=== PATIENT | male | born 1930 | race Caucasian/White ===

== ENCOUNTER 2017-05-15 20:09 | Emergency (ER) | payer MEDICARE, OTHER ==
--- NOTE | 2017-05-15 20:39 | Emergency Department Record ---
History of Present Illness - General Chief complaint: Bite Insect/other Stated complaint: not acting right/heart issues/copd/stung by bees Time Seen by Provider: 05/15/17 20:28 Source: Patient, Family Mode of Arrival: Wheelchair - History of Present Illness Initial comments: The patient was at his home outside wearing his oxygen as usual for his COPD when he got stung by some bees on his right cheek, left face, and right arm. In his attempts to get away his oxygen tubing caught on the fence, and he made it into the house without his oxygen. When his son and arrived about 30 minutes later they found him sitting in his chair, SOB, nauseated, and without very good color on his face. His symptoms improved when they placed his oxygen back on but he buitrago continued to not feel well and has nausea still. He denies any chest pain, fevers, chills, AP. His breathing is back to baseline he states. He is UTD on his tetanus. MD complaint: Insect bite/sting Onset/Timin -: Hour(s) Hx Tetanus Toxoid Vaccination: Yes Year of Tetanus Vaccination: 2012 Treatments Prior to Arrival: None - Related Data Home Medications Medication Instructions Recorded Confirmed Last Taken Amiodarone HCl 200 mg PO DAILY 04/13/14 05/15/17 05/14/17 Fluticasone/Salmeterol [Advair 1 puff INH BID 04/13/14 05/15/17 05/14/17 250-50 Diskus] Lisinopril 2.5 mg PO QHS 04/13/14 05/15/17 05/14/17 Metoprolol Succinate [Toprol Xl] 25 mg PO DAILY 04/13/14 05/15/17 05/14/17 Nitroglycerin 1 tab PO Q5MIN PRN 04/13/14 05/15/17 02/28/16 Rosuvastatin Calcium [Crestor] 10 mg PO QHS 04/13/14 05/15/17 05/14/17 Tiotropium [place] [Spiriva] 1 cap INH DAILY 04/13/14 05/15/17 05/14/17 Cholecalciferol (Vitamin D3) 4,000 unit PO DAILY 10/15/15 05/15/17 05/14/17 [Vitamin D3] Multivitamin [Multi-Vitamin Daily] 1 each PO DAILY 10/15/15 05/15/17 05/14/17 Aspirin [Aspir-Low] 81 mg PO DAILY 05/15/17 05/15/17 05/15/17 Allergies Allergy/AdvReac Type Severity Reaction Status Date / Time No Known Drug Allergies Allergy Verified 07/20/16 01:47 Travel Screening - Travel/Exposure Within Last 30 Days Have you traveled within the last 30 days?: No - Travel Symptoms Symptom Screening: None Review of Systems Reviewed: No additional complaints except as noted below Constitutional: Reports: As per HPI. Denies: Chills, Fever, Malaise, Night sweats, Weakness, Weight change Eyes: Reports: As per HPI. Denies: Eye discharge, Eye pain, Photophobia, Vision change ENT: Reports: As per HPI. Denies: Congestion, Dental pain, Ear pain, Epistaxis , Hearing loss, Throat pain Respiratory: Reports: As per HPI. Denies: Cough, Dyspnea, Hemoptysis, Stridor, Wheezes Cardiovascular: Reports: As per HPI. Denies: Arrhythmia, Chest pain, Dyspnea on exertion, Edema, Murmurs, Orthopnea, Palpitations, Paroxysmal nocturnal dyspnea, Rheumatic Fever, Syncope Endocrine: Reports: As per HPI. Denies: Fatigue, Heat or cold intolerance, Polydipsia, Polyuria Gastrointestinal: Reports: As per HPI. Denies: Abdominal pain, Constipation, Diarrhea, Hematemesis, Hematochezia, Melena, Nausea, Vomiting Genitourinary: Reports: As per HPI. Denies: Dysuria, Frequency, Hematuria, Incontinence, Retention, Testicular pain, Testicular mass, Urgency Musculoskeletal: Reports: As per HPI. Denies: Arthralgia, Back pain, Gout, Joint swelling, Myalgia, Neck pain Skin: Reports: As per HPI. Denies: Bruising, Change in color, Change in hair/ nails, Lesions, Pruritus, Rash Neurological: Reports: As per HPI. Denies: Abnormal gait, Confusion, Headache, Numbness, Paresthesias, Seizure, Tingling, Tremors, Vertigo, Weakness Psychiatric: Reports: As per HPI. Denies: Anxiety, Auditory hallucinations, Depression, Homicidal thoughts, Suicidal thoughts, Visual hallucinations Hematological/Lymphatic: Reports: As per HPI. Denies: Anemia, Blood Clots, Easy bleeding, Easy bruising, Swollen glands Past Medical History - SOCIAL HISTORY Smoking Status: Former smoker - RESPIRATORY Hx Respiratory Disorders: Yes Hx Bronchitis: Yes Hx COPD: Yes Hx Pneumonia: Yes Comment:: Home O2-3L - CARDIOVASCULAR Hx Cardio Disorders: Yes Hx Abnormal EKG: Yes Hx Cardiac Cath: Yes Hx Chest Pain: Yes Hx Edema: Yes Hx Hypertension: Yes Hx Irregular Heartbeat: Yes Comment:: AAA - NEURO Hx Neuro Disorders: No Hx Seizures: No - GI Hx GI Disorders: Yes Hx of Polyps: Yes Comment:: cholecystitis & cholelithiasis - Hx Genitourinary Disorders: Yes Hx Bladder Problem: Yes Hx Prostate Problems: Yes (removed) Hx Renal Disease: Yes - ENDOCRINE Hx Endocrine Disorders: No - MUSCULOSKELETAL Hx Musculoskeletal Disorders: Yes Hx Arthritis: Yes Hx Musculoskeletal Disease: Yes - PSYCH Hx Psych Problems: No - HEMATOLOGY/ONCOLOGY Hx Hematology/Oncology Disorders: Yes Hx Cancer: Yes (prostate) Hx Blood Transfusions: Yes Hx Blood Transfusion Reaction: No Family Medical History Any Significant Family History?: Yes Hx Diabetes: Father Hx Heart Disease: Father Physical Exam - General General Appearance: Alert, Oriented x3, Cooperative, Mild distress (fatigued pleasant elderlyl male ) - Head Head exam: Normal inspection Image of Face/Head: 1 - bee sting, no stinger found 2 - bee sting, no stinger found. local erythema only - Eye Eye exam: Normal appearance, PERRL, EOMI Pupils: Normal accommodation - ENT ENT exam: Normal exam, Mucous membranes moist, Normal external ear exam, Normal orophraynx, TM's normal bilaterally Ear exam: Normal external inspection. negative: External canal tenderness Nasal Exam: Normal inspection. negative: Discharge, Sinus tenderness Mouth exam: Normal external inspection, Tongue normal, Other (no edema or airway compromise). negative: Drooling, Muffled voice, Trismus Teeth exam: Normal inspection. negative: Dental caries Throat exam: Normal inspection. negative: Tonsillar erythema, Tonsillar exudate - Neck Neck exam: Normal inspection, Full ROM. negative: Tenderness - Respiratory Respiratory exam: Decreased breath sounds. negative: Accessory muscle use, Chest wall tenderness, Respiratory distress, Stridor, Wheezes - Cardiovascular Cardiovascular Exam: Regular rate, Normal rhythm, Normal heart sounds - GI/Abdominal GI/Abdominal exam: Soft, Normal bowel sounds. negative: Tenderness - Rectal Rectal exam: Deferred - exam: Deferred - Extremities Extremities exam: Normal inspection, Full ROM, Normal capillary refill. negative: Calf tenderness, Pedal edema, Tenderness - Back Back exam: Reports: Normal inspection, Full ROM. Denies: Muscle spasm, Rash noted, Tenderness - Neurological Neurological exam: Alert, CN II-XII intact, Normal gait, Oriented X3, Reflexes normal - Psychiatric Psychiatric exam: Normal affect, Normal mood - Skin Skin exam: Dry, Intact, Normal color, Warm Course Vital Signs 05/15/17 20:14 Temperature 98.1 F Pulse Rate 68 Respiratory 28 H Rate Blood Pressure 146/80 Pulse Ox 96 - Reevaluation(s) Reevaluation #1: Patient declined needing a breathing treatment. 05/15/17 21:00 Reevaluation #2: All results discussed with patient's son who agrees with discharge plan. 05/15/17 21:38 Medical Decision Making - Management Options MDM Management: No Additional Work-up Planned - Data Complexity MDM Data: Labs Ordered and/or Reviewed, X-Ray Ordered and/or Reviewed (CXR tweo view: Many chronic changes, COPD, torsion of aorta, regression of pleural effusions, no acute changes. Per radiologist.), EKG Ordered and/or Reviewed - Lab Data Result diagrams: 05/15/17 20:50 05/15/17 20:50 - EKG Data -: EKG Interpreted by Vt EKG: No Acute Changes, Unchanged From Previous (prior of 07-24-16) Disposition Disposition: Discharge Clinical Impression: COPD not affecting current episode of care Local reaction to bee sting Qualifiers: Encounter type: initial encounter Injury intent: accidental or unintentional Qualified Code(s): T63.441A - Toxic effect of venom of bees, accidental ( unintentional), initial encounter Disposition: Home, Self-Care Instructions: Insect Bite or Sting (ED) Additional Instructions: Ice to sting sites if helpful for comfort. Benadryl 25 mg every 6 hours for bee stings. Continue present meds. Follow up with PCP as needed.
[2017-05-15] MEDS ORDERED: DIPHENHYDRAMINE HCL IV 50 MG/ML VIAL IVP ONE (20:42)
[2017-05-15] MEDS ORDERED: ONDANSETRON HCL IV 4 MG/2 ML VIAL IVP ONE (20:42)
[2017-05-15 20:56] LABS: HEMOGLOBIN 11.8 gm/dl (14.0-18.0); MEAN CELL VOLUME 98.4 fl (81-97); MEAN CORPUSCULAR HEMOGLOBIN 32.2 pg (27-33); MEAN CORPUSCULAR HGB CONC 32.8 g/dl (32-36); MEAN PLATELET VOLUME 8.8 fl (7.4-10.4); PLATELET COUNT 135 K/uL (130-400); RED BLOOD COUNT 3.66 M/uL (4.40-5.70); RED CELL DISTRIBUTION WIDTH 14.6 % (11.5-14.5); WHITE BLOOD COUNT W/O DIFF 9.9 K/uL (4.2-12.2)
[2017-05-15 21:09] LABS: INR 1.01; PARTIAL THROMBOPLASTIN TIME 19.7 SECONDS (24.5-39.1); PROTHROMBIN TIME (PATIENT) 11.4 SECONDS (9.5-12.1)
[2017-05-15 21:10] LABS: ANION GAP 11.5 (7-16); CARBON DIOXIDE 25.5 mmol/L (22-30); CREATININE 1.5 mg/dL (0.66-1.25)
[2017-05-15 21:23] LABS: CKMB 2.6 ug/L (0-6); TROPONIN I 0.018 ng/mL (0.00-0.034)
--- NOTE | 2017-05-16 10:23 | RADIOLOGY REPORT ---
DATE: 05/15/2017 at 9:12 p.m. EXAM: TWO-VIEW CHEST. HISTORY: COPD. Shortness of breath, nausea. TECHNIQUE: AP, sitting, and lateral views. COMPARISON: Two-view chest dated 08/02/2016. FINDINGS: Relatively stable cardiomegaly. Postoperative sternotomy as before. 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 The lungs appear somewhat hyperinflated suggesting COPD. Mild blunting of the costophrenic angles less than before consistent with regression of previously seen bilateral pleural effusions. Pulmonary vascularity currently is probably within normal limits. Postoperative changes of the right shoulder. Valve prosthesis in place. No definite acute infiltrate seen. IMPRESSION: 1. HYPERINFLATION CONSISTENT WITH COPD, PROBABLY WITH SOME MILD FIBROSIS. HOWEVER, NO DEFINITE ACUTE INFILTRATE SEEN. 2. REGRESSION IN BILATERAL PLEURAL EFFUSIONS SINCE 08/02/2016. 3. POSTOPERATIVE STERNOTOMY WITH VALVE PROSTHESIS AND POSTOPERATIVE CHANGES OF THE RIGHT SHOULDER. 4. CALCIFICATION AND TORSION OF THE AORTA AGAIN EVIDENT. JOB NUMBER: [id number]. MTDD
== END 2017-05-15 21:54 | disposition home or self-care (01) ==
LOC: ER 20:09
DX: T63.441A Toxic effect of venom of bees, accidental (unintentional), initial encounter (principal); R06.02 Shortness of breath; R11.0 Nausea; J44.9 Chronic obstructive pulmonary disease, unspecified; I10 Essential (primary) hypertension; Z87.891 Personal history of nicotine dependence; Y92.007 Garden or yard of unspecified non-institutional (private) residence as the place of occurrence of the external cause
CPT/HCPCS: 99284 ×2; 96374; 96375; 85730; 85610; 82553; 84484; 80048; 85027; 83880; 71020; 93005; 93010; J2405; J1200

== ENCOUNTER 2017-06-15 19:01 | Emergency (ER) | payer MEDICARE, OTHER ==
[2017-06-15] MEDS ORDERED: CEPHALEXIN 500 MG CAPSULE PO STA (19:20)
--- NOTE | 2017-06-15 19:45 | Emergency Department Record ---
History of Present Illness - General Chief Complaint: Laceration(s) Stated Complaint: LACERATIONS ON LEFT SERAFIN Time Seen by Provider: 06/15/17 19:14 Source: Patient Mode of Arrival: Ambulatory Limitations: No limitations - History of Present Illness Initial Commments: The patient is here due to cutting his L lower leg on a branch of a caraballo about 2 hours ago. His Td is UTD. He denies any other injury. The patient is also not sure if he took his BP medicines today. He also denies any FB sensation around the cut. Onset/Timin -: Hour(s) Place: Home, Outdoors Context: Accidental Associated Symptoms: None Treatments Prior to Arrival: Bandage - [place] Coma Scale Eye Response: (4) Open spontaneously Motor Response: (6) Obeys commands Verbal Response: (5) Oriented [place] Total: 15 - Related Data Hx Tetanus Toxoid Vaccination: Yes Year of Tetanus Vaccination: 2012 Patient Tetanus UTD (within 5 yrs): Yes Home Medications Medication Instructions Recorded Confirmed Last Taken Amiodarone HCl 200 mg PO DAILY 04/13/14 05/15/17 05/14/17 Fluticasone/Salmeterol [Advair 1 puff INH BID 04/13/14 05/15/17 05/14/17 250-50 Diskus] Lisinopril 2.5 mg PO QHS 04/13/14 05/15/17 05/14/17 Metoprolol Succinate [Toprol Xl] 25 mg PO DAILY 04/13/14 05/15/17 05/14/17 Nitroglycerin 1 tab PO Q5MIN PRN 04/13/14 05/15/17 02/28/16 Rosuvastatin Calcium [Crestor] 10 mg PO QHS 04/13/14 05/15/17 05/14/17 Tiotropium [place] [Spiriva] 1 cap INH DAILY 04/13/14 05/15/17 05/14/17 Cholecalciferol (Vitamin D3) 4,000 unit PO DAILY 10/15/15 05/15/17 05/14/17 [Vitamin D3] Multivitamin [Multi-Vitamin Daily] 1 each PO DAILY 10/15/15 05/15/17 05/14/17 Aspirin [Aspir-Low] 81 mg PO DAILY 05/15/17 05/15/17 05/15/17 Previous Rx's Medication Instructions Recorded Cephalexin [Keflex] 500 mg PO BID #10 cap 06/15/17 Allergies Allergy/AdvReac Type Severity Reaction Status Date / Time No Known Drug Allergies Allergy Verified 07/20/16 01:47 Travel Screening - Travel/Exposure Within Last 30 Days Have you traveled within the last 30 days?: No - Travel/Exposure Within Last Year Have you traveled outside the [place] in the last year?: No - Additonal Travel Details Have you been exposed to anyone with a communicable illness?: No - Travel Symptoms Symptom Screening: None Review of Systems Constitutional: Denies: Chills, Fever Past Medical History - SOCIAL HISTORY Smoking Status: Former smoker Alcohol Use: None Drug Use: None - RESPIRATORY Hx Respiratory Disorders: Yes Hx Bronchitis: Yes Hx COPD: Yes Hx Pneumonia: Yes Comment:: Home O2-3L - CARDIOVASCULAR Hx Cardio Disorders: Yes Hx Abnormal EKG: Yes Hx Cardiac Cath: Yes Hx Chest Pain: Yes Hx Edema: Yes Hx Hypertension: Yes Hx Irregular Heartbeat: Yes Comment:: AAA - NEURO Hx Neuro Disorders: No Hx Seizures: No - GI Hx GI Disorders: Yes Hx of Polyps: Yes Comment:: cholecystitis & cholelithiasis - Hx Genitourinary Disorders: Yes Hx Bladder Problem: Yes Hx Prostate Problems: Yes (removed) Hx Renal Disease: Yes - ENDOCRINE Hx Endocrine Disorders: No - MUSCULOSKELETAL Hx Musculoskeletal Disorders: Yes Hx Arthritis: Yes Hx Musculoskeletal Disease: Yes - PSYCH Hx Psych Problems: No - HEMATOLOGY/ONCOLOGY Hx Hematology/Oncology Disorders: Yes Hx Cancer: Yes (prostate) Hx Blood Transfusions: Yes Hx Blood Transfusion Reaction: No Family Medical History Any Significant Family History?: No Hx Diabetes: Father Hx Heart Disease: Father Physical Exam - General General Appearance: Alert, Oriented x3, Cooperative, No acute distress - Head Head exam: Atraumatic, Normocephalic - Extremities Extremities exam: Normal capillary refill, Tenderness (There is mild tenderness around the wound.). negative: Normal inspection (There is a 5 cm superficial lac to the distal anterior lower leg.) Image of Full Body: 1 - 5 cm lac Course Vital Signs 06/15/17 19:04 Temperature 98.1 F Pulse Rate 69 Respiratory 20 Rate Blood Pressure 203/103 Pulse Ox 95 - Reevaluation(s) Reevaluation #1: Procedure note: The L lower leg lac was anesth. with 3 cc's [place] 1%. The wound was explored and was superficial and it was lavaged with sterile saline. There were no FB's visualized. The lac was closed with 6 4.0 nylon sutures. There were no complications. 06/15/17 19:42 Reevaluation #2: The patient was doing very well at discharge. His BP was still mildly elevated so he was told to monitor it at home and see his PCP early next week. 06/15/17 20:44 Disposition Disposition: Discharge Clinical Impression: Laceration of leg Qualifiers: Encounter type: initial encounter Laterality: left Qualified Code(s): S81.812A - Laceration without foreign body, left lower leg, initial encounter Disposition: Home, Self-Care Condition: (1) Good Instructions: Laceration (ED) Additional Instructions: Keep dry for 2 days then wash daily with soap and water. Elevate the leg for the next 3 days. Watch for signs of infection. Have the sutures removed in 10 days. Take the Keflex as directed. Prescriptions: Cephalexin [Keflex] 500 mg PO BID #10 cap Forms: Patient Portal Access Time of Disposition: 19:44 Quality - Quality Measures Quality Measures: N/A - Blood Pressure Screening View Details: Yes Blood Pressure Classification: Hypertensive Reading Systolic Measurement: 203 Diastolic Measurement: 103 Screening for High Blood Pressure: < Pre-Hypertensive BP, F/U Documented > [ G8950] Pre-Hypertensive Follow-up Interventions: Follow-up with rescreen every year.
== END 2017-06-15 20:03 | disposition home or self-care (01) ==
LOC: ER 19:01
DX: S81.812A Laceration without foreign body, left lower leg, initial encounter (principal); W26.8XXA Contact with other sharp object(s), not elsewhere classified, initial encounter; Y92.007 Garden or yard of unspecified non-institutional (private) residence as the place of occurrence of the external cause; I10 Essential (primary) hypertension; Z87.891 Personal history of nicotine dependence
CPT/HCPCS: 12002; 99283

== ENCOUNTER 2017-06-25 14:28 | Emergency (ER) | payer MEDICARE, OTHER ==
--- NOTE | 2017-06-25 15:05 | Emergency Department Record ---
History of Present Illness - General Chief Complaint: Suture removal Stated Complaint: SUTURE REMOVAL Time Seen by Provider: 06/25/17 14:56 Source: Patient, RN notes reviewed - History of Present Illness Initial Comments: healing nicely and it may open sutures in for 10 days and placed here. Onset/Timin -: Days(s) Initial Visit For: Laceration Returns Today for: Staple/stitch removal Symptoms Since Prior Visit: No new symptoms Associated Symptoms: None - Related Data Home Medications Medication Instructions Recorded Confirmed Last Taken Amiodarone HCl 200 mg PO DAILY 04/13/14 06/25/17 06/25/17 Fluticasone/Salmeterol [Advair 1 puff INH BID 04/13/14 06/25/17 06/25/17 250-50 Diskus] Lisinopril 2.5 mg PO QHS 04/13/14 06/25/17 06/25/17 Metoprolol Succinate [Toprol Xl] 25 mg PO DAILY 04/13/14 06/25/17 06/25/17 Nitroglycerin 1 tab PO Q5MIN PRN 04/13/14 06/25/17 06/25/17 Rosuvastatin Calcium [Crestor] 10 mg PO QHS 04/13/14 06/25/17 06/25/17 Tiotropium [place] [Spiriva] 1 cap INH DAILY 04/13/14 06/25/17 06/25/17 Cholecalciferol (Vitamin D3) 4,000 unit PO DAILY 10/15/15 06/25/17 06/25/17 [Vitamin D3] Multivitamin [Multi-Vitamin Daily] 1 each PO DAILY 10/15/15 06/25/17 06/25/17 Aspirin [Aspir-Low] 81 mg PO DAILY 05/15/17 06/25/17 06/25/17 Previous Rx's Medication Instructions Recorded Cephalexin [Keflex] 500 mg PO BID #10 cap 06/15/17 Allergies Allergy/AdvReac Type Severity Reaction Status Date / Time No Known Drug Allergies Allergy Verified 07/20/16 01:47 Travel Screening - Travel/Exposure Within Last 30 Days Have you traveled within the last 30 days?: No - Travel/Exposure Within Last Year Have you traveled outside the [place] in the last year?: No - Additonal Travel Details Have you been exposed to anyone with a communicable illness?: No - Travel Symptoms Symptom Screening: None Review of Systems Reviewed: No additional complaints except as noted below Constitutional: Reports: As per HPI. Denies: Chills, Fever, Malaise, Night sweats, Weakness, Weight change Eyes: Reports: As per HPI. Denies: Eye discharge, Eye pain, Photophobia, Vision change ENT: Reports: As per HPI. Denies: Congestion, Dental pain, Ear pain, Epistaxis , Hearing loss, Throat pain Respiratory: Reports: As per HPI. Denies: Cough, Dyspnea, Hemoptysis, Stridor, Wheezes Cardiovascular: Reports: As per HPI. Denies: Arrhythmia, Chest pain, Dyspnea on exertion, Edema, Murmurs, Orthopnea, Palpitations, Paroxysmal nocturnal dyspnea, Rheumatic Fever, Syncope Endocrine: Reports: As per HPI. Denies: Fatigue, Heat or cold intolerance, Polydipsia, Polyuria Gastrointestinal: Reports: As per HPI. Denies: Abdominal pain, Constipation, Diarrhea, Hematemesis, Hematochezia, Melena, Nausea, Vomiting Genitourinary: Reports: As per HPI. Denies: Dysuria, Frequency, Hematuria, Incontinence, Retention, Testicular pain, Testicular mass, Urgency Musculoskeletal: Reports: As per HPI. Denies: Arthralgia, Back pain, Gout, Joint swelling, Myalgia, Neck pain Skin: Reports: As per HPI. Denies: Bruising, Change in color, Change in hair/ nails, Lesions, Pruritus, Rash Neurological: Reports: As per HPI. Denies: Abnormal gait, Confusion, Headache, Numbness, Paresthesias, Seizure, Tingling, Tremors, Vertigo, Weakness Psychiatric: Reports: As per HPI. Denies: Anxiety, Auditory hallucinations, Depression, Homicidal thoughts, Suicidal thoughts, Visual hallucinations Hematological/Lymphatic: Reports: As per HPI. Denies: Anemia, Blood Clots, Easy bleeding, Easy bruising, Swollen glands Past Medical History - SOCIAL HISTORY Smoking Status: Former smoker Alcohol Use: None Drug Use: None - RESPIRATORY Hx Respiratory Disorders: Yes Hx Bronchitis: Yes Hx COPD: Yes Hx Pneumonia: Yes Comment:: Home O2-3L - CARDIOVASCULAR Hx Cardio Disorders: Yes Hx Abnormal EKG: Yes Hx Cardiac Cath: Yes Hx Chest Pain: Yes Hx Edema: Yes Hx Hypertension: Yes Hx Irregular Heartbeat: Yes Comment:: AAA - NEURO Hx Neuro Disorders: No Hx Seizures: No - GI Hx GI Disorders: Yes Hx of Polyps: Yes Comment:: cholecystitis & cholelithiasis - Hx Genitourinary Disorders: Yes Hx Bladder Problem: Yes Hx Prostate Problems: Yes (removed) Hx Renal Disease: Yes - ENDOCRINE Hx Endocrine Disorders: No - MUSCULOSKELETAL Hx Musculoskeletal Disorders: Yes Hx Arthritis: Yes Hx Musculoskeletal Disease: Yes - PSYCH Hx Psych Problems: No - HEMATOLOGY/ONCOLOGY Hx Hematology/Oncology Disorders: Yes Hx Cancer: Yes (prostate) Hx Blood Transfusions: Yes Hx Blood Transfusion Reaction: No Family Medical History Any Significant Family History?: No Hx Diabetes: Father Hx Heart Disease: Father Physical Exam - General General Appearance: Alert, Oriented x3, Cooperative, No acute distress - Head Head exam: Normal inspection - Eye Eye exam: Normal appearance, PERRL Pupils: Normal accommodation - ENT ENT exam: Normal exam, Mucous membranes moist, Normal external ear exam, Normal orophraynx, TM's normal bilaterally Ear exam: Normal external inspection. negative: External canal tenderness Nasal Exam: Normal inspection. negative: Discharge, Sinus tenderness Mouth exam: Normal external inspection, Tongue normal Teeth exam: Normal inspection. negative: Dental caries Throat exam: Normal inspection. negative: Tonsillar erythema, Tonsillar exudate - Neck Neck exam: Normal inspection, Full ROM. negative: Tenderness - Respiratory Respiratory exam: Normal lung sounds bilaterally. negative: Respiratory distress - Cardiovascular Cardiovascular Exam: Regular rate, Normal rhythm, Normal heart sounds - GI/Abdominal GI/Abdominal exam: Soft, Normal bowel sounds. negative: Tenderness - Rectal Rectal exam: Deferred - exam: Deferred - Extremities Extremities exam: Normal inspection, Full ROM, Normal capillary refill. negative: Tenderness - Back Back exam: Reports: Normal inspection, Full ROM. Denies: Muscle spasm, Rash noted, Tenderness - Neurological Neurological exam: Alert, Normal gait, Oriented X3, Reflexes normal - Psychiatric Psychiatric exam: Normal affect, Normal mood - Skin Skin exam: Dry, Intact, Normal color, Warm Course Vital Signs 06/25/17 14:50 Temperature 97.9 F Pulse Rate 68 Respiratory 18 Rate Blood Pressure 131/70 Pulse Ox 100 Disposition Clinical Impression: Visit for suture removal Disposition: Home, Self-Care Instructions: Stitches Removal (ED) Additional Instructions: follow up with family Forms: Patient Portal Access Time of Disposition: 15:04 Quality - Quality Measures Quality Measures: N/A - Blood Pressure Screening Does Patient Have Any of the Following: No Blood Pressure Classification: Pre-Hypertensive BP Reading Systolic Measurement: 131 Diastolic Measurement: 70 Screening for High Blood Pressure: < Pre-Hypertensive BP, F/U Documented > [ G8950] Pre-Hypertensive Follow-up Interventions: Referral to alternative/primary care provider.
== END 2017-06-25 15:10 | disposition home or self-care (01) ==
LOC: ER 14:28
DX: Z48.02 Encounter for removal of sutures (principal)

== ENCOUNTER 2017-09-24 00:53 | Emergency (ER) | payer MEDICARE, OTHER ==
[2017-09-24] MEDS ORDERED: ACETAMINOPHEN 1,000 MG/100 ML BTL IVPB ONE (01:02)
--- NOTE | 2017-09-24 01:14 | Emergency Department Record ---
History of Present Illness - General Chief Complaint: Fall Injury Stated Complaint: FALL Time Seen by Provider: 09/24/17 00:58 Source: Patient, Family Mode of Arrival: Wheelchair Limitations: No limitations - History of Present Illness Initial Comments: 87 yo male presents after a fall at 11 pm. The patient was looking out of his porch, turned and lost balance and fell onto his right hip. He is not on any anticoagulants. He was able to get up and get back to his bedroom ambulating without any assistance. He does have pain with any ambulation. He broke his left hip in 2014. Dr Navas operated on the hip at that time at [facility]. 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 He denies hitting his head. No headache, syncope, neck pain, back or chest pain. MD Complaint: Fall Onset/Timin -: Minutes(s) Fall From: From height (distance) When Fall Occurred: Just prior to arrival Fall Witnessed: No Place Fall Occurred: Home Loss of Consciousness: None Prolonged Down Time?: No Symptoms Prior to Fall: None Severity: Moderate Quality: Aching Associated Symptoms: Denies - Werner Coma Scale Eye Response: (4) Open spontaneously Motor Response: (6) Obeys commands Verbal Response: (5) Oriented Werner Total: 15 - Related Data Allergies Allergy/AdvReac Type Severity Reaction Status Date / Time No Known Drug Allergies Allergy Verified 07/20/16 01:47 Travel Screening - Travel/Exposure Within Last 30 Days Have you traveled within the last 30 days?: No - Travel/Exposure Within Last Year Have you traveled outside the [place] in the last year?: No - Additonal Travel Details Have you been exposed to anyone with a communicable illness?: No - Travel Symptoms Symptom Screening: None Review of Systems Constitutional: Denies: Chills, Fever, Weakness Eyes: Denies: Eye discharge ENT: Denies: Congestion, Throat pain Respiratory: Reports: Cough, Dyspnea Cardiovascular: Denies: Chest pain, Palpitations, Syncope Endocrine: Denies: Fatigue Gastrointestinal: Denies: Abdominal pain, Diarrhea, Nausea, Vomiting Genitourinary: Denies: Dysuria, Frequency, Hematuria Musculoskeletal: Reports: As per HPI, Arthralgia. Denies: Back pain Skin: Denies: Bruising, Change in color, Rash Neurological: Denies: Headache, Numbness, Tremors, Vertigo, Weakness Psychiatric: Denies: Anxiety Hematological/Lymphatic: Denies: Blood Clots, Easy bleeding, Easy bruising, Swollen glands Past Medical History - SOCIAL HISTORY Smoking Status: Former smoker Alcohol Use: None Drug Use: None - RESPIRATORY Hx Respiratory Disorders: Yes Hx Bronchitis: Yes Hx COPD: Yes Hx Pneumonia: Yes Comment:: Home O2-2-3L - CARDIOVASCULAR Hx Cardio Disorders: Yes Hx Abnormal EKG: Yes Hx Cardiac Cath: Yes Hx Chest Pain: Yes Hx Edema: Yes Hx Hypertension: Yes Hx Irregular Heartbeat: Yes Comment:: AAA - NEURO Hx Neuro Disorders: No Hx Seizures: No - GI Hx GI Disorders: Yes Hx of Polyps: Yes Comment:: cholecystitis & cholelithiasis - Hx Genitourinary Disorders: Yes Hx Bladder Problem: Yes Hx Prostate Problems: Yes (removed) Hx Renal Disease: Yes - ENDOCRINE Hx Endocrine Disorders: No - MUSCULOSKELETAL Hx Musculoskeletal Disorders: Yes Hx Arthritis: Yes Hx Musculoskeletal Disease: Yes - PSYCH Hx Psych Problems: No - HEMATOLOGY/ONCOLOGY Hx Hematology/Oncology Disorders: Yes Hx Cancer: Yes (prostate) Hx Blood Transfusions: Yes Hx Blood Transfusion Reaction: No Family Medical History Any Significant Family History?: Yes Hx Diabetes: Father Hx Heart Disease: Father Physical Exam - General General Appearance: Alert, Oriented x3, Cooperative, No acute distress Limitations: No limitations - Head Head exam: Atraumatic, Normocephalic, Normal inspection - Eye Eye exam: Normal appearance, PERRL. negative: Conjunctival injection, Periorbital swelling, Scleral icterus - ENT ENT exam: Normal exam, Mucous membranes moist Ear exam: Normal external inspection Nasal Exam: Normal inspection Mouth exam: Normal external inspection - Neck Neck exam: Normal inspection - Respiratory Respiratory exam: Decreased breath sounds, Prolonged expiratory. negative: Respiratory distress - Cardiovascular Cardiovascular Exam: Regular rate, Normal rhythm, Normal heart sounds Peripheral Pulses: 2+: Radial (R), Radial (L) - GI/Abdominal GI/Abdominal exam: Soft. negative: Distended, Guarding, Rebound, Rigid, Tenderness - Rectal Rectal exam: Deferred - exam: Deferred - Extremities Extremities exam: Normal inspection, Normal capillary refill, Tenderness Image of Full Body: 1 - tenderness to the lateral posterior right hip, netgative log roll. No shortening. Pain with hip flexion - Back Back exam: Reports: Normal inspection, Full ROM. Denies: CVA tenderness (R), CVA tenderness (L), Muscle spasm, Vertebral tenderness - Neurological Neurological exam: Alert, Oriented X3. negative: Altered - Psychiatric Psychiatric exam: Normal affect, Normal mood. negative: Agitated, Anxious - Skin Skin exam: Dry, Intact, Normal color, Warm Course Vital Signs 09/24/17 09/24/17 00:55 01:00 Temperature 98.1 F 98.1 F Pulse Rate 76 Pulse Rate [ 66 Pulse Ox Probe] Respiratory 20 20 Rate Blood Pressure 144/82 Blood Pressure 144/82 [Left Arm] Pulse Ox 81 L 90 L - Reevaluation(s) Reevaluation #1: 09/24/17 01:53 The [facility] XR report was reviewed. No acute fracture noted. Moderately advanced degenerative changes both hips. No dislocation. I discussed the results with the patient and his family. He states his pain is controlled enough to go home. His family lives in the house next door. They support his decision to go home and feel he will be safe at home with their help. He has a walker that he was instructed to use for support. I did offer admission if pain control or safety were a concern for the patient or family. They declined and will return if there are new concerns at home. 09/24/17 02:02 09/24/17 02:03 Disposition Disposition: Discharge Clinical Impression: Contusion of hip, right Qualifiers: Encounter type: initial encounter Qualified Code(s): S70.01XA - Contusion of right hip, initial encounter Disposition: Home, Self-Care Condition: (1) Good Instructions: Fall Prevention for Older Adults (ED) Additional Instructions: Use your walker at all times for support if walking Tylenol for pain control Return to the ER if you have increased pain, uncontrolled pain or any new concerns Follow up first of the week with your doctor to review this ER visit If you pain continues you will need further testing Forms: Patient Portal Access Time of Disposition: 02:03 Quality - Quality Measures Quality Measures: N/A - Blood Pressure Screening Does Patient Have Any of the Following: No Blood Pressure Classification: Pre-Hypertensive BP Reading Systolic Measurement: 144 Diastolic Measurement: 82 Screening for High Blood Pressure: < Pre-Hypertensive BP, F/U Documented > [ G8950] Pre-Hypertensive Follow-up Interventions: Referral to alternative/primary care provider.
--- NOTE | 2017-09-25 07:46 | RADIOLOGY REPORT ---
EXAM: PELVIS AND RIGHT HIP HISTORY: PAIN. TECHNIQUE: AP view of the pelvis with two views of the right hip were obtained. Comparison: Pelvis and left hip from 10/15/15. Encounter: Initial. FINDINGS: Osteopenia. Grossly stable post surgical changes. Advanced degenerative changes of the right hip. There is a skin fold which extends over the intertrochanteric region, however, no convincing evidence for an acute fracture or dislocation. Correlate with any history of inability to ambulate. Abundant stool in the visualized colon. IMPRESSION: OSTEOPENIA WITH ADVANCED DEGENERATIVE CHANGES. EXTENSIVE POST SURGICAL CHANGES. NO EVIDENCE FOR ACUTE FRACTURE OR DISLOCATION. CORRELATE WITH ANY HISTORY OF INABILITY TO AMBULATE. JOB NUMBER: [id number] MTDD
== END 2017-09-24 02:27 | disposition home or self-care (01) ==
LOC: ER 00:53
DX: S72.114A Nondisplaced fracture of greater trochanter of right femur, initial encounter for closed fracture (principal); I10 Essential (primary) hypertension; W17.89XA Other fall from one level to another, initial encounter; Y92.008 Other place in unspecified non-institutional (private) residence as the place of occurrence of the external cause; Z87.891 Personal history of nicotine dependence; J44.9 Chronic obstructive pulmonary disease, unspecified; Z99.81 Dependence on supplemental oxygen; R05 Cough
CPT/HCPCS: 99284 ×2; 99285 ×2; 96374; 96375; 85610; 80053; 85027; 71020; 73502; 72192; J2405; J2270; J7030

== ENCOUNTER 2017-09-24 20:52 | Emergency (ER) | payer MEDICARE, OTHER ==
[2017-09-24] MEDS ORDERED: MORPHINE SULFATE 5 MG/ML PFS IVP ONE (21:12)
[2017-09-24] MEDS ORDERED: ONDANSETRON HCL IV 4 MG/2 ML VIAL IVP ONE (21:12)
[2017-09-24] MEDS ORDERED: 0.9 % SODIUM CHLORIDE 1000ML 500 ML IV SCH (21:15)
--- NOTE | 2017-09-24 21:17 | Emergency Department Record ---
History of Present Illness - General Chief complaint: Pain Stated complaint: WEAKNESS Time Seen by Provider: 09/24/17 20:59 Source: Patient Mode of Arrival: Wheelchair Limitations: No limitations - History of Present Illness Initial comments: 87 yo male presents to ED for re-evaluation of continued right hip pain following fall last night, radiographs were negative for fracture last night and the patient/family wanted to go home. Patient however has been unable to stand on the right leg today, and her reports pain with any form of movement or coughing (has COPD). Patient denies recent illness, fevers, chills, or illness. Patient underwent left hip ORIF with Dr. Navas 2 years ago following a fall with similar symptoms. MD Complaint: Extremity pain, Joint pain Onset/Timin -: Hour(s) Location: Right Severity scale (1-10): 5 Consistency: Getting worse Improves with: Rest Associated Symptoms: Denies other symptoms - Related Data Allergies Allergy/AdvReac Type Severity Reaction Status Date / Time No Known Drug Allergies Allergy Verified 07/20/16 01:47 Travel Screening - Travel/Exposure Within Last 30 Days Have you traveled within the last 30 days?: No - Travel/Exposure Within Last Year Have you traveled outside the [place] in the last year?: No - Additonal Travel Details Have you been exposed to anyone with a communicable illness?: No - Travel Symptoms Symptom Screening: None Review of Systems Constitutional: Denies: Chills, Fever, Malaise, Night sweats Eyes: Denies: Eye discharge, Eye pain ENT: Denies: Congestion, Ear pain Respiratory: Reports: Cough, Dyspnea Cardiovascular: Denies: Chest pain Endocrine: Denies: Fatigue, Heat or cold intolerance Gastrointestinal: Denies: Abdominal pain, Nausea, Vomiting Genitourinary: Denies: Incontinence, Retention Musculoskeletal: Reports: Arthralgia. Denies: Back pain, Gout, Joint swelling Skin: Denies: Bruising, Change in color Neurological: Denies: Confusion, Headache, Seizure Psychiatric: Denies: Anxiety Hematological/Lymphatic: Denies: Anemia, Blood Clots Past Medical History - SOCIAL HISTORY Smoking Status: Former smoker Alcohol Use: None Drug Use: None - RESPIRATORY Hx Respiratory Disorders: Yes Comment:: Home O2-3L - CARDIOVASCULAR Hx Cardio Disorders: Yes Hx Abnormal EKG: Yes Hx Cardiac Cath: Yes Hx Chest Pain: Yes Hx Edema: Yes Hx Hypertension: Yes Hx Irregular Heartbeat: Yes Comment:: AAA - NEURO Hx Neuro Disorders: No Hx Seizures: No - GI Hx GI Disorders: Yes Hx of Polyps: Yes Comment:: cholecystitis & cholelithiasis - Hx Genitourinary Disorders: Yes Hx Bladder Problem: Yes Hx Prostate Problems: Yes (removed) Hx Renal Disease: Yes - ENDOCRINE Hx Endocrine Disorders: No - MUSCULOSKELETAL Hx Musculoskeletal Disorders: Yes Hx Arthritis: Yes Hx Musculoskeletal Disease: Yes - PSYCH Hx Psych Problems: No - HEMATOLOGY/ONCOLOGY Hx Hematology/Oncology Disorders: Yes Hx Cancer: Yes (prostate) Hx Blood Transfusions: Yes Hx Blood Transfusion Reaction: No Family Medical History Any Significant Family History?: No Hx Diabetes: Father Hx Heart Disease: Father Physical Exam - General General Appearance: Alert, Oriented x3, Cooperative, Moderate distress Limitations: No limitations - Head Head exam: Atraumatic, Normocephalic, Normal inspection Head exam detail: negative: Abrasion, Contusion, Culver's sign, General tenderness, Hematoma, Laceration - Eye Eye exam: Normal appearance. negative: Conjunctival injection, Periorbital swelling, Periorbital tenderness, Scleral icterus - ENT Ear exam: negative: Auricular hematoma, Auricular trauma Nasal Exam: negative: Active bleeding, Discharge, Dried blood, Foreign body Mouth exam: negative: Drooling, Laceration, Muffled voice, Tongue elevation - Neck Neck exam: Normal inspection. negative: Meningismus, Tenderness - Respiratory Respiratory exam: Decreased breath sounds. negative: Rales, Respiratory distress, Rhonchi, Stridor - Cardiovascular Cardiovascular Exam: Regular rate, Normal rhythm, Normal heart sounds - GI/Abdominal GI/Abdominal exam: Soft. negative: Rebound, Rigid, Tenderness - Rectal Rectal exam: Deferred - exam: Deferred - Extremities Extremities exam: Tenderness (TTP to the proximal right femur on examination), Other. negative: Calf tenderness, Pedal edema - Back Back exam: Denies: CVA tenderness (R), CVA tenderness (L) - Neurological Neurological exam: Alert, Oriented X3 - Psychiatric Psychiatric exam: Normal affect, Normal mood - Skin Skin exam: Normal color. negative: Abrasion Type of lesion: negative: abrasion Course Vital Signs 09/24/17 09/24/17 21:04 21:08 Temperature 98.5 F Pulse Rate 89 Pulse Rate [ 89 Pulse Ox Probe] Respiratory 28 H 22 Rate Blood Pressure 170/98 Pulse Ox 80 L 92 L - Reevaluation(s) Reevaluation #1: 09/24/17 22:10 Labs reviewed, Hgb 11.2, BUN 40 (baseline 30), Creatinine 1.5 (at baseline). Labs are otherwise grossly unremarkable for an acute process. Reevaluation #2: 09/24/17 22:21 CXR: No acute process, chronic post-operative changes, scarring, and COPD are present. CT Pelvis: Non-displaced fracture greater trochanter without extension into to the neck or inter-trochanter region, small joint effusion. Reevaluation #3: 09/24/17 22:42 Case was discussed with Dr. Stevens, will accept transfer for orthoepdic evaluation. Medical Decision Making - Lab Data Result diagrams: 09/24/17 21:19 09/24/17 21:19 Disposition Disposition: Transfer Clinical Impression: Greater trochanter fracture Qualifiers: Encounter type: initial encounter Fracture type: closed Fracture alignment: nondisplaced Laterality: right Qualified Code(s): S72.114A - Nondisplaced fracture of greater trochanter of right femur, initial encounter for closed fracture COPD (chronic obstructive pulmonary disease) Qualifiers: COPD type: unspecified COPD Qualified Code(s): J44.9 - Chronic obstructive pulmonary disease, unspecified Disposition: Acute Care Hospital Transfer Transfer To: [facility] Reason For Transfer: Orthopedic evaluation Accepting Physician: Rodney Time Discussed w/Accepting Physician: 22:31 Forms: Patient Portal Access Time of Disposition: 22:32 Quality - Quality Measures Quality Measures: N/A - Blood Pressure Screening Does Patient Have Any of the Following: Active Dx of HTN Blood Pressure Classification: Hypertensive Reading Systolic Measurement: 170 Diastolic Measurement: 98 Screening for High Blood Pressure: Patient Exclusion, Hx of HTN [G9744]
[2017-09-24 21:47] LABS: HEMATOCRIT 36.7 % (42.0-52.0); HEMOGLOBIN 11.2 gm/dl (14.0-18.0); MEAN CELL VOLUME 100.3 fl (81-97); MEAN CORPUSCULAR HEMOGLOBIN 30.6 pg (27-33); MEAN CORPUSCULAR HGB CONC 30.5 g/dl (32-36); MEAN PLATELET VOLUME 9.6 fl (7.4-10.4); PLATELET COUNT 122 K/uL (130-400); RED BLOOD COUNT 3.66 M/uL (4.40-5.70); RED CELL DISTRIBUTION WIDTH 15.3 % (11.5-14.5); WHITE BLOOD COUNT W/O DIFF 10.2 K/uL (4.2-12.2)
[2017-09-24 21:56] LABS: INR 1.11
[2017-09-24 22:02] LABS: ALBUMIN 3.6 g/dL (4.0-5.0); BILIRUBIN,TOTAL 0.7 mg/dL (0.2-1.0); CREATININE 1.5 mg/dL (0.7-1.2); TOTAL PROTEIN 7.2 g/dL (6.6-8.7)
--- NOTE | 2017-09-25 07:56 | RADIOLOGY REPORT ---
EXAM: CHEST, TWO VIEWS HISTORY: CHRONIC DEEP COUGH. TECHNIQUE: PA and lateral views of the chest were obtained. Comparison: Two view chest radiographic examination dated 05/15/17. FINDINGS: Post median sternotomy changes are identified. The heart projects near the upper limits of normal in size. No pulmonary venous hypertension is seen. The thoracic aorta is tortuous and atherosclerotic. The lungs are hyperinflated consistent with COPD. On the lateral view there is posterior costophrenic angle blunting consistent with scarring or small pleural effusions. This is likely more pronounced on the left. There are patchy mixed opacities in the mid and lower lungs consistent with atelectasis or infiltrate. Mild underlying chronic interstitial changes suspected. Old healed fracture deformities of the posterolateral left eighth and ninth ribs redemonstrated. There are degenerative changes of the visualized spine and shoulder girdles. IMPRESSION: 1. POST MEDIAN STERNOTOMY. 2. HYPERINFLATION OF THE LUNGS CONSISTENT WITH COPD. 3. MILD PATCHY MIXED OPACITIES IN THE MID AND LOWER LUNGS CONSISTENT WITH ATELECTASIS OR MILD INFILTRATE. 4. MILD POSTERIOR COSTOPHRENIC ANGLE BLUNTING, LEFT GREATER THAN RIGHT CONSISTENT WITH SCARRING OR SMALL EFFUSIONS. JOB NUMBER: [id number] [facility]
--- NOTE | 2017-09-25 08:06 | CT SCAN REPORT ---
EXAM: CT OF THE PELVIS WITHOUT CONTRAST HISTORY: RIGHT HIP PAIN POST FALL. DIFFICULTY BEARING WEIGHT. TECHNIQUE: Thin collimation helical CT examination of the pelvis was performed in the axial plane without intravenous contrast. Coronal and sagittal reformatted images are generated and reviewed. Comparison: Same day radiographic examination of the right hip obtained at 01: 25. FINDINGS: There is diffuse osteopenia. There is a nondisplaced transverse fracture of the greater trochanter of the right femur. This is not convincingly extended to the femoral neck nor intratrochanteric portion of the femur. There is mild adjacent soft tissue swelling and a small hip joint effusion is suspected. Orthopedic fixation hardware is noted within the proximal left femur. There are moderate degenerative changes of each hip and there are moderate degenerative changes of the visualized lumbar spine. 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 This measures 9.2 x 8.9 cm. The nikolai lumen is heterogeneous in appearance. The etiology of this is uncertain. Without intravenous contrast, endoleak cannot be excluded. No gross bowel dilatation or bowel wall thickening. IMPRESSION: 1. NONDISPLACED FRACTURE OF THE GREATER TROCHANTER OF THE RIGHT FEMUR. NO DEFINITE EXTENSION INTO THE FEMORAL NECK NOR INTRATROCHANTERIC PORTION OF THE FEMUR. THERE IS ASSOCIATED SOFT TISSUE SWELLING AND SMALL RIGHT HIP JOINT EFFUSION. 2. MODERATE DEGENERATIVE CHANGES OF EACH HIP. 3. ORTHOPEDIC FIXATION HARDWARE WITHIN THE PROXIMAL LEFT FEMUR APPEARING INTACT. DEGENERATIVE CHANGES OF THE LUMBAR SPINE. 4. 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 THIS IS INCOMPLETELY IMAGED. THE CHOCTAW LUMEN OF THE ABDOMINAL AORTA IS HETEROGENEOUS. WITHOUT IV CONTRAST, ENDOLEAK WOULD BE DIFFICULT TO EXCLUDE. 5. NOT MENTIONED ABOVE IS A SMALL VOLUME OF FREE FLUID IN THE DEPENDENT PELVIS OF INDETERMINATE ETIOLOGY. JOB NUMBER: [id number] MTDD
== END 2017-09-25 00:10 | disposition short-term general hospital (02) ==
LOC: ER 20:52
DX: S72.114A Nondisplaced fracture of greater trochanter of right femur, initial encounter for closed fracture (principal); R05 Cough; J44.9 Chronic obstructive pulmonary disease, unspecified; I10 Essential (primary) hypertension; Z99.81 Dependence on supplemental oxygen; Z87.891 Personal history of nicotine dependence
CPT/HCPCS: 71020; 72192; 80053; 85027; 85610; J2405; J7030

== ENCOUNTER 2017-10-03 10:21 | Inpatient (IN) | payer MEDICARE, OTHER ==
--- NOTE | 2017-10-04 09:29 | History & Physical ---
History of Present Illness - Date Date of Service for History & Physical: 10/04/17 - History of Present Illness Admitting Diagnosis: s/p Right hip fracture, deconditioning History of Present Illness: Mr. Tavares is an 87 year-old male who fell at home on 09/23/17. He went to [facility] ER and his x-ray was read as negative at that time. His pain continued, and he went back to the ER on 09/[address] that showed a right hip greater trochanter fracture. He was then transferred to [facility] in [place] and he underwent an ORIF of his right hip on 09/26/[address] Navas. He was deemed medically stable, however continued to need PT/OT services so was transitioned to [facility] on 09/29/17 at [facility]. His family chose to transfer him to [facility] swing bed for rehabilitation on 10/04/17 ([facility] was original choice but no room initially). He lives at home alone and uses a walker. Past history includes: CAD, COPD, CKD-3, A-fib, angina, anemia, HTN, dyslipidemia, AAA, prostate cancer, home O2, left hip fracture in 07/2016, aortic valve replacement, and CABG. 10/04/17- Mr. Tavares is a pleasant 87 year-old male. He is resting comfortably in bed and he just finished his PT/OT evaluation. He denies pain at this time and he expressed his comfort being here. PCP: Марина Villeda MD General - Cognitive Patterns Speech: Normal Thought Process: Intact Thought Content: Normal Orientation: Oriented x3 - Communication Preferred Language?: [place] Ash Collector Required: No - Mood and Behavior Patterns Appearance: Well Groomed Mood: Normal Attitude: Cooperative Motor Activity: Calm Affect: Appropriate - Psychosocial Well-Being Usual Living Arrangement: Alone Relationship Status: / Christian: Jain - Physical Functioning Assistive Devices: Walker - Continence Bladder Pattern: Dribbling - Dental Status Broken or loosely fitting full or partial dentures: Yes (loose lower dentures) - Nutrition Screening Poor oral intake > 1 week: No Unplanned weight loss in specified time frame: No Nutrition Support via tube feedings or parenteral nutrition: No Pressure Ulcer: No Significantly underweight define as BMI <18.5 kg/m2: No Albumin <2.5mg/dL: No Persistent nausea/vomiting/diarrhea >3 days: No Difficulty chewing/swallowing/mouth sores: No Admitting Diagnosis: No Nutrition Risk Score: Low Risk Review of Systems Constitutional: Reports: As per HPI. Denies: Chills, Fever, Malaise, Night sweats, Weakness, Weight change Eyes: Reports: As per HPI. Denies: Eye discharge, Eye pain, Photophobia, Vision change ENT: Reports: As per HPI, Other (loose lower denture). Denies: Congestion, Dental pain, Ear pain, Epistaxis, Hearing loss, Throat pain Respiratory: Reports: Cough (Occasional productive cough per pt., not worsening) . Denies: Hemoptysis, Wheezes Cardiovascular: Reports: Arrhythmia (a-fib), Edema (right lower extremity), Murmurs. Denies: Chest pain, Dyspnea on exertion, Orthopnea, Palpitations, Paroxysmal nocturnal dyspnea, Rheumatic Fever, Syncope Endocrine: Reports: As per HPI. Denies: Fatigue, Heat or cold intolerance, Polydipsia, Polyuria Gastrointestinal: Reports: As per HPI. Denies: Abdominal pain, Constipation, Diarrhea, Hematemesis, Hematochezia, Melena, Nausea, Vomiting Musculoskeletal: Reports: As per HPI (s/p right hip ORIF). Denies: Arthralgia, Back pain, Gout, Joint swelling, Myalgia, Neck pain Skin: Reports: As per HPI (healing right hip incisions). Denies: Bruising, Change in color, Change in hair/nails, Lesions, Pruritus, Rash Neurological: Reports: As per HPI. Denies: Abnormal gait, Confusion, Headache, Numbness, Paresthesias, Seizure, Tingling, Tremors, Vertigo, Weakness Psychiatric: Reports: As per HPI. Denies: Anxiety, Auditory hallucinations, Depression, Homicidal thoughts, Suicidal thoughts, Visual hallucinations Hematological/Lymphatic: Reports: As per HPI. Denies: Anemia, Blood Clots, Easy bleeding, Easy bruising, Swollen glands Past Medical History - SOCIAL HISTORY Smoking Status: Former smoker - SURGICAL HISTORY Past Surgical History: ORIF R hip 09/26/17. open heart surgery "replaced arterial valve" 2 yrs ago. right shoulder. prostatectomy. ORIF L hip 10/16/15 - RESPIRATORY Hx Respiratory Disorders: Yes Comment:: Home O2-3L - CARDIOVASCULAR Hx Cardio Disorders: Yes Hx Abnormal EKG: Yes Hx Cardiac Cath: Yes Hx Chest Pain: Yes Hx Edema: Yes Hx Hypertension: Yes Hx Irregular Heartbeat: Yes Comment:: AAA - NEURO Hx Neuro Disorders: No Hx Seizures: No - GI Hx GI Disorders: Yes Hx of Polyps: Yes Comment:: cholecystitis & cholelithiasis - Hx Genitourinary Disorders: Yes Hx Bladder Problem: Yes Hx Prostate Problems: Yes (removed) Hx Renal Disease: Yes - ENDOCRINE Hx Endocrine Disorders: No - MUSCULOSKELETAL Hx Musculoskeletal Disorders: Yes Hx Arthritis: Yes Hx Musculoskeletal Disease: Yes - PSYCH Hx Psych Problems: No - HEMATOLOGY/ONCOLOGY Hx Hematology/Oncology Disorders: Yes Hx Cancer: Yes (prostate) Hx Blood Transfusions: Yes Hx Blood Transfusion Reaction: No Family Medical History Hx Diabetes: Father Hx Heart Disease: Father H&P Meds/Allergies - Allergies Allergies: Allergies Allergy/AdvReac Type Severity Reaction Status Date / Time No Known Drug Allergies Allergy Verified 07/20/16 01:47 Physical Exam - General General Appearance: Alert, Oriented x3, Cooperative, No acute distress Limitations: No limitations - Head Head exam: Normal inspection - Eye Eye exam: Normal appearance, PERRL, Other (glasses) Pupils: Normal accommodation - Neck Neck exam: Normal inspection, Full ROM. negative: Tenderness - Respiratory Respiratory exam: Decreased breath sounds (slightly diminished throughout). negative: Accessory muscle use, Rales, Rhonchi, Wheezes - Cardiovascular Cardiovascular Exam: Irregular rhythm, Systolic murmur Peripheral Pulses: 2+: Radial (R), Radial (L), Dorsalis Pedis (R), Dorsalis Pedis (L) - GI/Abdominal GI/Abdominal exam: Soft, Normal bowel sounds. negative: Tenderness - Rectal Rectal exam: Deferred - exam: Deferred - Extremities Extremities exam: Other (limited mobility of right lower extremtity s/p hip fracture, 2+ pitting edema of RLE) - Neurological Neurological exam: Alert, Oriented X3, Other (ambulates using walker and transfers with assist) - Psychiatric Psychiatric exam: Normal affect, Normal mood - Skin Skin exam: Dry, Normal color, Warm, Other (Right hip healing surgical incisions with tsephanie, no drainage or reddness) H&P Results - Labs Result Diagrams: 10/05/17 06:00 10/05/17 06:00 Plan - Swing Bed Certification Initial Certification Due: 10/04/17 14 Day Re-Cert Due: 10/18/17 44 Day Re-Cert Due: 11/17/17 74 Day Re-Cert Due: 12/17/17 - Detailed Diagnosis and Plan (1) Greater trochanter fracture Current Visit: No Status: Acute Qualifiers: Encounter type: initial encounter Fracture type: closed Fracture alignment: nondisplaced Laterality: right Qualified Code(s): S72.114A - Nondisplaced fracture of greater trochanter of right femur, initial encounter for closed fracture Base Code: S72.113A - DISP FX OF GREATER TROCHANTER OF UNSP FEMUR, INIT Comment: 10/04/17- Fell at home on 09/23/17, right hip greater trochanteric fracture, ORIF of right hip 09/26/17. Plan to consult and resume PT/OT, manage pain ([place] 7.5mg/325mg 1 tab q6 hours prn), increase mobility. Will check CBC with diff and CMP tomorrow am. Follow up with orthopedic surgeon (Dr. Navas) as indicated to assess healing. (2) Physical deconditioning Current Visit: Yes Status: Acute Base Code: R53.81 - OTHER MALAISE Comment : 10/04/17- Pt. lives alone and uses walker, however, he has had 2 falls resulting in hip fractures (current right hip, left hip 2015). Consult and resume PT/OT, social work to assess safety at home and independent living situation. (3) Atrial fibrillation Current Visit: Yes Status: Acute Base Code: I48.91 - UNSPECIFIED ATRIAL FIBRILLATION Comment: 10/04/17- Continue medications: amiodarone 200mg daily , aspirin 81mg daily, lovenox 30mg sc daily. (4) COPD (chronic obstructive pulmonary disease) Current Visit: No Status: Acute Qualifiers: COPD type: unspecified COPD Qualified Code(s): J44.9 - Chronic obstructive pulmonary disease, unspecified Base Code: J44.9 - CHRONIC OBSTRUCTIVE PULMONARY DISEASE, UNSPECIFIED Comment : 10/04/17- Pt. is on home oxygen, 2L nasal cannula. Current oxygen sat is 90 % on 2L nc. Continue nc, Breo Ellipta and Incruse Ellipta. (5) Hypertension Current Visit: Yes Status: Acute Base Code: I10 - ESSENTIAL (PRIMARY) HYPERTENSION Comment: 10/04/17- Assess vital signs daily, continue toprol 25mg daily. (6) DVT prophylaxis Current Visit: No Status: Acute Base Code: [id number] - Comment: 10/04/17- Pt. is high risk for DVT due to history of a-fib and decreased mobility secondary to right hip fracture on 09/23/17. Pt. follows cardiology for a-fib management. Continue aspirin 81mg daily and lovenox 30mg sc daily. Plan to work with PT to increase ambulation. (7) Full code status Current Visit: Yes Status: Acute Base Code: Z78.9 - OTHER SPECIFIED HEALTH STATUS Comment: 10/04/17- Pt. is full code
[2017-10-04] MEDS ORDERED: HYDROCODONE/APAP 7.5/325MG TABLET PO PRN (09:55)
[2017-10-04] MEDS: ASPIRIN 81 MG TABEC PO SCH (10:54)
[2017-10-04] MEDS: HYDROCODONE/APAP 7.5/325MG TABLET PO SCH ×2 (10:54→22:37)
[2017-10-04] MEDS: METOPROLOL SUCC 25 MG TAB.ER PO SCH (10:54)
[2017-10-04] MEDS: MULTIVITAMINS/MINERALS TABLET PO SCH (10:54)
[2017-10-04] MEDS: DOCUSATE SODIUM 100 MG CAPSULE PO SCH ×2 (10:55→22:38)
[2017-10-04] MEDS: AMIODARONE HCL 200 MG TABLET PO SCH (10:55)
[2017-10-04] MEDS: CHOLECALCIFEROL 1,000 UNIT TABLET PO SCH (10:55)
--- NOTE | 2017-10-04 10:59 | Rehab Evaluation ---
Patient Information - Patient Information Diagnosis: Right hip fracture, Deconditioning Ordered Treatment: PT Evaluate and Treat Status: Initial Evaluation Surgery: Yes Date of Surgery: 09/24/17 Past Medical/Surgical Hx: PAST MEDICAL/SURGICAL HISTORY Past Surgical History open heart surgery "replaced arterial valve" 2 yrs ago. right shoulder ORIF L hip 10/16/15 PMH - Respiratory Hx Respiratory Disorders Yes Hx Bronchitis Yes Hx Chronic Obstructive Yes Pulmonary Disease (COPD) Hx Pneumonia Yes Comment: Home O2-3L PMH - Cardiovascular Hx Cardiovascular Disorders Yes Hx Abnormal EKG Yes Hx Cardiac Catheterization Yes Hx Chest Pain Yes Hx Edema Yes Hx Hypertension Yes Hx Irregular Heartbeat Yes Comment: AAA PMH - Neuro Hx Neurological Disorders No Hx Seizures No PMH - GI Hx Gastrointestinal Disorders Yes Comment: cholecystitis & cholelithiasis PMH - Hx Genitourinary Disorders Yes Hx Bladder Problem Yes Hx Prostate Problems Yes: removed Hx Renal Disease Yes PMH - Endocrine Hx Endocrine Disorders No PMH - Musculoskeletal Hx Musculoskeletal Disorders Yes Hx Arthritis Yes Hx Musculoskeletal Disease Yes PMH - Psych Hx Psychiatric Problems No PMH - Hematology/Oncology Hx Hematology/Oncology Yes Disorders Hx Cancer Yes: prostate Hx Blood Transfusion Reaction No Social History: Detail (Pt. reports that a couple weeks ago he went to turn on his front light to look outside for his cat and as he turned the light off and turned around to walk away he caught his foot on a short table resulting in a fall and he landed on his R hip. The pt. reports he lives alone in a 1-story home, but that he has family that lives on either side of him to help as necessary and regularly check up on him. The pt. has 1 step to enter the home from the garage with railing on both sides. There is a ramp that leads to the back door with railings on both sides. The pt. reports his bedroom, bathroom and laundry room are all on the 1st floor. He has a raised toilet seat with grab bars, a walk in shower with grab barsand a built in bench. The pt. reports he generally stands to shower and has to step over a short raised surface to step in. Pt. has a 4-wheeled walker, front-wheeled walker, and three canes to assist with ambulation. The pt. reports he doesn't have any precautions from his surgery, but is weight bearing as tolerated. The pt. reports he is able to prep his own food and can clean around his house. The patient uses oxygen at home at 2.5L. The pt. reports his current pain at a 4-5/10 and reports he does have some instances of numbess and tingling sensations that travel down his R leg and into his foot.) Precautions: [place], Fall - Time With Patient Total Time Spent With Patient (Min): 30 Treatment Procedures: Detail (PT completed intial evaluation.) Subjective Information - Subjective Information Per Patient (See social history section.) Objective Data - Pain Pain Present: Yes Pain Intensity: 5 Pain Scale Used: Numeric (1 - 10) - Mental Status Patient Orientation: Oriented x3 - Visual Perception Appears within normal limits for therapeutic activities - ROM Not within normal limits (Decreased R hip flexion and knee flexion with ambulation.) - Strength/Tone Not within normal limits (Lower extremity generalized weakness. L hip flex. 3+/5 , L hip ABD 3+/5 L hip ADD 4-/5, L hip IR 5/5, L hip ER 4-/5, L knee flex and ext. 4/5, L ankle DF and PF 5/5, R hip flex 3-/5 (unable to go through full ROM against gravity), R hip ABD 3+/5, R hip ADD 3+/5, R hip IR 3+/5, R hip ER 3+/5, R knee flex and ext 3+/5, R ankle PF 4/5, DF 5/5. All strength tests on R side produced pain.) - Coordination Appears within normal limits for therapeutic activities - Bed Mobility Independent (Pt. required minimal assist to reposition legs in bed, but was able to perform a sit to supine transfer independently.) - Transfers Independent (Pt. was independent with supine to sit, sit to stand and stand to sit transfers.) - Balance Balance Sitting: Good Balance Standing: Fair (Pt. exhibits minimal side to side sway with inital standing. Will further assess pt.'s balance with Tinetti Balance Assessment Tool at next appointment.) - Sensation Intact - Gait Detail (Pt. ambulated with a front wheeled walker. Pt. exhibited decreased hip flexion and knee flexion with ambulation. Pt. ambulated with a step 2 pattern bearing weight as tolerated on his R LE.) Therapy Assessment - Therapy Assessment Detail (Pt. exhibits LE weakness, LE pain, ROM deficits, gait impairements and balance deficits. Pt. will benefit from IP PT to help decrease these impairments and meet his goals for PT. Pt. will benefit from education on fall prevention techniques to help decrease incidence and risk of injury.) Problem List - Problem List Physical Therapy Problem List: Detail (1. LE weakness 2. LE ROM deficits 3. Gait impairments 4. Balance deficits 5. LE pain) Goals - Goals Physical Therapy Goals: 1. Pt. will independently ambulate 100ft with an AD with no reports of increased pain and with more than 50% weight bearing. 2. PT will administer the Tinetti Balance Assessment Tool to assess the pt.'s overall balance. 3. Pt. will verbalize and demonstrate understanding of HEP. 4. Pt. will independently ascend and descend 3 steps with no reports of increased pain in the R LE. Prognosis - Prognosis Good Plan - Plan Physical Therapy Plan: Pt. will be seen 1-2x/day Monday-Monday during the course of inpatient physical therapy. Treatment will consist of therapeutic exercise of LE stengthening exercises, gait training, balance training, and pt. education on completing safe transfers around the home setting.
[2017-10-04] MEDS: UMECLIDINIUM BROMIDE (INCRUSE) 62.5MCG IH SCH (11:15)
[2017-10-04] MEDS: BREO (FLUTICASONE/VILANTEROL) 200MCG/25MCG INHALER INH SCH (11:15)
--- NOTE | 2017-10-04 11:16 | Rehab Evaluation ---
Patient Information - Patient Information Diagnosis: s/p Hip fx; deconditioning Ordered Treatment: OT Evaluate and Treat Status: Initial Evaluation Surgery: Yes Date of Surgery: 09/24/17 Past Medical/Surgical Hx: PAST MEDICAL/SURGICAL HISTORY Past Surgical History open heart surgery "replaced arterial valve" 2 yrs ago. right shoulder ORIF L hip 10/16/15 PMH - Respiratory Hx Respiratory Disorders Yes Hx Bronchitis Yes Hx Chronic Obstructive Yes Pulmonary Disease (COPD) Hx Pneumonia Yes Comment: Home O2-3L PMH - Cardiovascular Hx Cardiovascular Disorders Yes Hx Abnormal EKG Yes Hx Cardiac Catheterization Yes Hx Chest Pain Yes Hx Edema Yes Hx Hypertension Yes Hx Irregular Heartbeat Yes Comment: AAA PMH - Neuro Hx Neurological Disorders No Hx Seizures No PMH - GI Hx Gastrointestinal Disorders Yes Comment: cholecystitis & cholelithiasis PMH - Hx Genitourinary Disorders Yes Hx Bladder Problem Yes Hx Prostate Problems Yes: removed Hx Renal Disease Yes PMH - Endocrine Hx Endocrine Disorders No PMH - Musculoskeletal Hx Musculoskeletal Disorders Yes Hx Arthritis Yes Hx Musculoskeletal Disease Yes PMH - Psych Hx Psychiatric Problems No PMH - Hematology/Oncology Hx Hematology/Oncology Yes Disorders Hx Cancer Yes: prostate Hx Blood Transfusion Reaction No Social History: Detail (Pt. reports that a couple weeks ago he went to turn on his front light to look outside for his cat and as he turned the light off and turned around to walk away he caught his foot on a short table resulting in a fall and he landed on his R hip. The pt. reports he lives alone in a 1-story home, but that he has family that lives on either side of him to help as necessary and regularly check up on him. The pt. has 1 step to enter the home from the garage with railing on both sides. There is a ramp that leads to the back door with railings on both sides. The pt. reports his bedroom, bathroom and laundry room are all on the 1st floor. He has a raised toilet seat with grab bars, a walk in shower w/ glass door enclosure, grab bars, hand held- shower head and a built in bench. The pt. reports he generally stands to shower and has to step over a short raised surface to step in. Pt. has a 4-wheeled walker, front-wheeled walker, and three canes to assist with ambulation. The pt. reports he doesn't have any precautions from his surgery, but is weight bearing as tolerated. No ADL equipment. The pt. reports he is able to prep his own food and can clean around his house. The patient uses oxygen at home at 2.5L. The pt. reports his current pain at a 4-5/10 and reports he does have some instances of numbess and tingling sensations that travel down his R leg and into his foot. Pt was ind. w/ all ADLs PUBLIC HEALTH NUTRITIONIST and ambulated w/o AD on most occasions.) Precautions: [place], Fall, Other (Weight bear as tolerated. No other precautions given at this time.) - Time With Patient Total Time Spent With Patient (Min): 25 (PT also present during evaluation) Treatment Procedures: Detail (Eval low) Subjective Information - Subjective Information Per Patient Objective Data - Pain Pain Present: Yes Pain Intensity: 5 (R hip) Pain Scale Used: Numeric (1 - 10) - Mental Status Patient Orientation: Oriented x3 - Visual Perception Appears within normal limits for therapeutic activities (Pt wears glasses) - ROM Not within normal limits (RUE very limited in shld, and forearm ROM limiting functional use of this arm. ROM limitations is from an old injury to rotator cuff. R shld flex/abd ~ 70 deg and ~40 deg forearm supination. LUE WNL for shld , elbow, forearm, and wrist ROM.) - Strength/Tone Not within normal limits (RUE MMT not tested due to ROM limitations and pain. LUE grossly 3+/5 to 4/5 MMT for shld flex, ext, abd/add. 5/5 elbow ext. 3+/5 elbow flex.) - Transfers Independent (SBA sit<>stand t/f using 2WW.), Needs Assist (SBA sit<>stand t/f using 2WW.) - Sensation Deficit (Pt reports numbness in L thumb tip secondary to old injury w/ chain saw. No other reports of paresthesia.) - Gait Detail (Amb from bedside chair > short distance into hallway> back to bed w/ CGA for safety using 2WW. Pt SOB and fatigues quickly w/ amb.) - ADL's/IADL's Detail (PUBLIC HEALTH NUTRITIONIST pt was independednt w/ ADLs. OT report from [facility] says pt was Max A for LB drsg. Trialed pt reaching for shoes/socks. Pt unable to bend at hip or use RUE to reach RLE. Able to partly reach R foot w/ LUE but not enough to help don/doff socks and shoes. Pt is able to reach L foot w/ L hand. Pt verbalized interest in balance wheel screw hole driller use. Recommend instruction on balance wheel screw hole driller use for LB drsg at next treatment. Continue to assess ADL needs and functioning level. Pt states that he received 1 shower at [facility] but that "they did everything for me.") Therapy Assessment - Therapy Assessment Detail (Pt shows decreased endurance for tasks, decreased ability to ambulate household distances, weakness of LUE, and decreased independence w/ ADLs. Pt would benefit from skilled OT services to address these limitations and provide instruction in ADL equipment in order for safe return home.) Problem List - Problem List Occupational Therapy Problem List: Detail (1. Pt unable to amb. household distances 2. Decreased ind. w/ LB drsg. 3. Decreased endurance to complete ADLs. 4. Decreased ind. w/ showering) Goals - Goals Occupational Therapy Goals: 1. Pt to be able to amb household distances using AD if needed. 2. Ind w/ LB drsg using ADL equipment if needed. 3. Ind w/ showering using ADL equipment if needed. 4. Pt to demonstrate improved endurance to complete ADLs w/ no rest breaks needed Prognosis - Prognosis Good Plan - Plan Occupational Therapy Plan: OT to treat 2-4x a week M-F to address ADL limitations, UE weakness, and decreased endurance.
--- NOTE | 2017-10-04 11:29 | Swing Bed Certification/Recert ---
Initial Certification Due: 10/04/17 14 Day Re-Cert Due: 10/18/17 44 Day Re-Cert Due: 11/17/17 74 Day Re-Cert Due: 12/17/17 CERTIFICATION 3 CERTIFICATION OF PATIENT ADMISSION Required at time of admission. Due: 10/04/17 I certify that SNF services are required to be given on an inpatient basis because of the above named patient's need for shelter care on a continuing basis for the condition(s) for which he/she was receiving inpatient hospital services prior to his/her transfer to the SNF. The patient's current needs for skilled care includes: [deconditing secondary to right hip ORIF 09/26/17, need for rehabilitation services] Yulia Shah N.P. 10/04/17
[2017-10-04] MEDS ORDERED: FLU VAC QS 2017-18 (INPT, 6MO+) 60MCG/0.5ML IM ONE (13:18)
[2017-10-04 17:58] LABS: ABO GROUP O; ANTIBODY SCREEN NEGATIVE (NEGATIVE); IMMED. SPIN CROSSMATCH COMPATIBLE; RH TYPE POSITIVE
[2017-10-04] MEDS: PANTOPRAZOLE SODIUM 40 MG TABLET PO SCH (18:00)
[2017-10-04] MEDS: LISINOPRIL 5 MG TABLET PO SCH (22:37)
[2017-10-05 06:13] LABS: BASO % 0.3 % (0-6); EOS % 3.5 % (0-6); GRAN % 70.1 % (47-80); HEMATOCRIT 27.6 % (42.0-52.0); HEMOGLOBIN 8.4 gm/dl (14.0-18.0); LYMPH % 15.6 % (16-45); MEAN CELL VOLUME 99.6 fl (81-97); MEAN CORPUSCULAR HEMOGLOBIN 30.3 pg (27-33); MEAN CORPUSCULAR HGB CONC 30.4 g/dl (32-36); MEAN PLATELET VOLUME 7.9 fl (7.4-10.4); MONO % 10.5 % (0-9); PLATELET COUNT 268 K/uL (130-400); RED BLOOD COUNT 2.77 M/uL (4.40-5.70); RED CELL DISTRIBUTION WIDTH 15.8 % (11.5-14.5)
[2017-10-05] MEDS: PANTOPRAZOLE SODIUM 40 MG TABLET PO SCH ×2 (06:57→16:16)
[2017-10-05 07:06] LABS: CREATININE 1.3 mg/dL (0.7-1.2)
[2017-10-05] MEDS: BREO (FLUTICASONE/VILANTEROL) 200MCG/25MCG INHALER INH SCH (09:38)
[2017-10-05] MEDS: UMECLIDINIUM BROMIDE (INCRUSE) 62.5MCG IH SCH (09:38)
[2017-10-05] MEDS: ENOXAPARIN 30 MG/0.3 ML SYR SQ SCH (09:44)
[2017-10-05] MEDS: HYDROCODONE/APAP 7.5/325MG TABLET PO SCH ×2 (09:44→21:21)
[2017-10-05] MEDS: ASPIRIN 81 MG TABEC PO SCH (09:45)
[2017-10-05] MEDS: MULTIVITAMINS/MINERALS TABLET PO SCH (09:45)
[2017-10-05] MEDS: AMIODARONE HCL 200 MG TABLET PO SCH (09:46)
[2017-10-05] MEDS: DOCUSATE SODIUM 100 MG CAPSULE PO SCH ×2 (09:46→21:21)
[2017-10-05] MEDS: METOPROLOL SUCC 25 MG TAB.ER PO SCH (09:46)
[2017-10-05] MEDS: CHOLECALCIFEROL 1,000 UNIT TABLET PO SCH (09:46)
[2017-10-05] MEDS: LISINOPRIL 5 MG TABLET PO SCH (21:28)
[2017-10-06] MEDS: PANTOPRAZOLE SODIUM 40 MG TABLET PO SCH ×2 (06:00→17:16)
[2017-10-06] MEDS: BREO (FLUTICASONE/VILANTEROL) 200MCG/25MCG INHALER INH SCH (09:39)
[2017-10-06] MEDS: UMECLIDINIUM BROMIDE (INCRUSE) 62.5MCG IH SCH (09:39)
[2017-10-06] MEDS: MULTIVITAMINS/MINERALS TABLET PO SCH (10:08)
[2017-10-06] MEDS: ENOXAPARIN 30 MG/0.3 ML SYR SQ SCH (10:09)
[2017-10-06] MEDS: DOCUSATE SODIUM 100 MG CAPSULE PO SCH ×2 (10:09→21:20)
[2017-10-06] MEDS: ASPIRIN 81 MG TABEC PO SCH (10:09)
[2017-10-06] MEDS: METOPROLOL SUCC 25 MG TAB.ER PO SCH (10:10)
[2017-10-06] MEDS: AMIODARONE HCL 200 MG TABLET PO SCH (10:10)
[2017-10-06] MEDS: HYDROCODONE/APAP 7.5/325MG TABLET PO SCH ×2 (10:10→21:21)
[2017-10-06] MEDS: CHOLECALCIFEROL 1,000 UNIT TABLET PO SCH (10:11)
--- NOTE | 2017-10-06 10:22 | Occupational Therapy Tx Note ---
Occupational Therapy Tx Note - Treatment Note Occupational Therapy Treatment Note: Detail (Pt up at EOB finishing breakfast. He reports he does not have any clean clothes here and took a shower already this week, therefore he really does not have anything to work on with OT today. He has requested shower assessment Monday. Provided loaner hi teacher for patient to use over weekend.) Occupational Therapy Problem List: Detail (1. Pt unable to amb. household distances 2. Decreased ind. w/ LB drsg. 3. Decreased endurance to complete ADLs. 4. Decreased ind. w/ showering) Occupational Therapy Goals: 1. Pt to be able to amb household distances using AD if needed. 2. Ind w/ LB drsg using ADL equipment if needed. 3. Ind w/ showering using ADL equipment if needed. 4. Pt to demonstrate improved endurance to complete ADLs w/ no rest breaks needed Prognosis: Good Occupational Therapy Plan: OT to treat 2-4x a week M-F to address ADL limitations, UE weakness, and decreased endurance.
--- NOTE | 2017-10-06 11:48 | Physical Therapy Tx Note ---
Physical Therapy Tx Note - Treatment Note Tolerated: Good Total Time Spent With Patient: 30 Physical Therapy Tx Note: Detail (The patient was in bed when PT arrived. The patient was indpendent with supine to and from sit transfer and sit to and from stand transfer. The patient ambulated with wheeled walker a distance of 65 feet x1, WBAT on the R LE with 2 L of O2 and supervision for safety. The patient tends to ambulate with LE's too close together. The patient completed LE strengthening exercises including: seated gluteal sets, quad sets, hamstring sets, hip adductor squeezes, hip abduction , hip marching and ankle pumps all x 10 - 8 reps. The patient had improved endurance with ambulation.) Physical Therapy Problem List: Detail (1. LE weakness 2. LE ROM deficits 3. Gait impairments 4. Balance deficits 5. LE pain) Physical Therapy Goals: 1. Pt. will independently ambulate 100ft with an AD with no reports of increased pain and with more than 50% weight bearing. 2. PT will administer the Tinetti Balance Assessment Tool to assess the pt.'s overall balance. 3. Pt. will verbalize and demonstrate understanding of HEP. 4. Pt. will independently ascend and descend 3 steps with no reports of increased pain in the R LE. Physical Therapy Plan: Pt. will be seen 1-2x/day Monday-Monday during the course of inpatient physical therapy. Treatment will consist of therapeutic exercise of LE stengthening exercises, gait training, balance training, and pt. education on completing safe transfers around the home setting.
[2017-10-06] MEDS: LISINOPRIL 5 MG TABLET PO SCH (21:20)
[2017-10-07] MEDS: PANTOPRAZOLE SODIUM 40 MG TABLET PO SCH ×2 (06:53→18:37)
[2017-10-07] MEDS: ASPIRIN 81 MG TABEC PO SCH (09:30)
[2017-10-07] MEDS: DOCUSATE SODIUM 100 MG CAPSULE PO SCH ×2 (09:31→21:45)
[2017-10-07] MEDS: HYDROCODONE/APAP 7.5/325MG TABLET PO SCH (09:31)
[2017-10-07] MEDS: AMIODARONE HCL 200 MG TABLET PO SCH (09:31)
[2017-10-07] MEDS: MULTIVITAMINS/MINERALS TABLET PO SCH (09:31)
[2017-10-07] MEDS: ENOXAPARIN 30 MG/0.3 ML SYR SQ SCH (09:32)
[2017-10-07] MEDS: CHOLECALCIFEROL 1,000 UNIT TABLET PO SCH (09:32)
[2017-10-07] MEDS: METOPROLOL SUCC 25 MG TAB.ER PO SCH (09:32)
[2017-10-07] MEDS: MAGNESIUM HYDROXIDE 30 ML UDC PO PRN (09:36)
[2017-10-07] MEDS: BREO (FLUTICASONE/VILANTEROL) 200MCG/25MCG INHALER INH SCH (09:43)
[2017-10-07] MEDS: UMECLIDINIUM BROMIDE (INCRUSE) 62.5MCG IH SCH (09:43)
[2017-10-07] MEDS: LISINOPRIL 5 MG TABLET PO SCH (21:45)
[2017-10-08] MEDS: PANTOPRAZOLE SODIUM 40 MG TABLET PO SCH ×2 (06:40→16:54)
--- NOTE | 2017-10-08 08:33 | Physician Progress Note ---
Subjective - Date Date of Progress Note: 10/08/17 - Admitting Diagnosis Diagnosis: s/p Right hip fracture, deconditioning - Subjective Events since last encounter: Patient had drop in Hb requiring transfusion of 1 unit type/cross PRBC to keep Hb > 8gm/dL. No active bleeding identified. Repeat labs stable Hb Nursing Care Plan Problem List Activity Intolerance (Swing Bed) Start: 10/04/17 12: 16 Freq: Status: Active Protocol: Created 10/04/17 12:16 MMT (Rec: 10/04/17 12:16 MMT [id number]) Knowledge Deficit (Swing Bed) Start: 10/04/17 12: 16 Freq: Status: Active Protocol: Created 10/04/17 12:16 MMT (Rec: 10/04/17 12:16 MMT [id number]) Pain (Swing Bed) Start: 10/04/17 12: 16 Freq: Status: Active Protocol: Created 10/04/17 12:16 MMT (Rec: 10/04/17 12:16 MMT [id number]) Skin Integrity, Impaired (Swing Bed) Start: 10/04/17 18: 23 Freq: Status: Active Protocol: Created 10/04/17 18:23 MMT (Rec: 10/04/17 18:23 MMT [id number]) Subjective: Patient alert, awake and oriented x 3 this morning. He has no new complaints at this time and is resting comfortably. - Subjective Detail Constitutional: Denies: Chills, Fever Respiratory: Denies: Cough, Dyspnea Cardiovascular: Denies: Chest pain, Edema Gastrointestinal: Reports: Abdominal pain, Constipation Genitourinary: Reports: Discharge, Dysuria Musculoskeletal: Reports: Arthralgia, Back pain Skin: Reports: Bruising, Change in color Neurological: Reports: Abnormal gait, Confusion, Headache Hematological/Lymphatic: Reports: Anemia. Denies: Easy bleeding General - Cognitive Patterns Speech: Normal Thought Process: Intact Thought Content: Normal - Communication Select best description of speech pattern: Clear Speech Ability to express ideas and wants: Understood Understanding verbal content: Understands - Mood and Behavior Patterns Appearance: Well Groomed Mood: Normal Attitude: Cooperative Motor Activity: Calm Affect: Appropriate Hallucinations: Denies - Physical Functioning Activity Level: Up as tolerated Turning: Self ad martha ROM Ability: Moves all extremities Assistive Devices: 2 Wheel Walker Ambulation Ability: Independent Bed Mobility: Independent Transfer Ability: Independent Bathing Ability: Needs Assist Personal Hygiene: Independent Dressing Ability: Independent Eating (Feeding) Ability: Independent Toileting Ability: Independent Administer Own Medication: Independent - Continence Bowel Pattern: No Bowel Movement Bladder Pattern: Normal Meds/Allergies - Allergies Allergies Allergy/AdvReac Type Severity Reaction Status Date / Time No Known Drug Allergies Allergy Verified 07/20/16 01:47 - Active Medications Current Medications Acetaminophen (Tylenol 325mg) 650 mg PO Q4H PRN PRN Reason: FEVER/MILD PAIN Hydrocodone Bitart/Acetaminophen (Sledge 7.5mg/325mg) 1 each PO Q6H PRN PRN Reason: Pain - General Amiodarone HCl (Pacerone) 200 mg PO DAILY [facility] Last Admin: 10/07/17 09:31 Dose: 200 mg Aspirin (Ecotrin (Ec)) 81 mg PO DAILY [facility] Last Admin: 10/07/17 09:30 Dose: 81 mg Docusate Sodium (Colace) 100 mg PO BID [facility] Last Admin: 10/07/17 21:45 Dose: 100 mg Enoxaparin Sodium (Lovenox) 30 mg SQ DAILY [facility] Last Admin: 10/07/17 09:32 Dose: 30 mg Lisinopril (Zestril) 2.5 mg PO QHS [facility] Last Admin: 10/07/17 21:45 Dose: 2.5 mg Magnesium Hydroxide (Milk Of Magnesium) 30 ml PO DAILY PRN PRN Reason: INDIGESTION Last Admin: 10/07/17 09:36 Dose: 30 ml Metoprolol Succinate (Toprol Xl) 25 mg PO DAILY [facility] Last Admin: 10/07/17 09:32 Dose: 25 mg Multivitamins/Minerals (Centrum) 1 tab PO DAILY [facility] Last Admin: 10/07/17 09:31 Dose: 1 tab Pantoprazole Sodium (Protonix) 40 mg PO BIDAC [facility] Last Admin: 10/08/17 06:40 Dose: 40 mg Vitamin D (Vitamin D3) 2,000 unit PO DAILY [facility] Last Admin: 10/07/17 09:32 Dose: 2,000 unit Objective - Vital Signs Vital Signs: Vital Signs - Last 24 Hrs Temp Pulse Pulse Resp BP Pulse Ox 10/07/17 21:15 69 97 10/07/17 10:05 68 16 98 10/07/17 10:00 97.6 F 71 18 125/66 95 10/07/17 09:50 95 - General General Appearance: Alert, Oriented x3, Cooperative, No acute distress Limitations: No limitations - Head Head exam: Atraumatic, Normocephalic, Normal inspection - Eye Eye exam: Normal appearance, PERRL, Other (glasses) Pupils: Normal accommodation - Neck Neck exam: Normal inspection, Full ROM. negative: Tenderness - Respiratory Respiratory exam: Decreased breath sounds (slightly diminished throughout). negative: Accessory muscle use, Rales, Rhonchi, Wheezes - Cardiovascular Cardiovascular Exam: Irregular rhythm, Systolic murmur Peripheral Pulses: 2+: Radial (R), Radial (L), Dorsalis Pedis (R), Dorsalis Pedis (L) - GI/Abdominal GI/Abdominal exam: Soft, Normal bowel sounds. negative: Tenderness - Rectal Rectal exam: Deferred - exam: Deferred - Extremities Extremities exam: Other (limited mobility of right lower extremtity s/p hip fracture, 2+ pitting edema of RLE) - Neurological Neurological exam: Alert, Oriented X3, Other (ambulates using walker and transfers with assist) - Psychiatric Psychiatric exam: Normal affect, Normal mood - Skin Skin exam: Dry, Normal color, Warm, Other (Right hip healing surgical incisions with stephanie, no drainage or reddness) H&P Results - Labs Result Diagrams: 10/05/17 06:00 10/05/17 06:00 Discharge Potential - Discharge Needs Community Services Used Prior to Admission: None Patient Discharge Plan Description: Return Home Plan - Swing Bed Certification Initial Certification Due: 10/04/17 14 Day Re-Cert Due: 10/18/17 44 Day Re-Cert Due: 11/17/17 74 Day Re-Cert Due: 12/17/17 - Detailed Diagnosis and Plan (1) Greater trochanter fracture Current Visit: No Status: Acute Qualifiers: Encounter type: initial encounter Fracture type: closed Fracture alignment: nondisplaced Laterality: right Qualified Code(s): S72.114A - Nondisplaced fracture of greater trochanter of right femur, initial encounter for closed fracture Base Code: S72.113A - DISP FX OF GREATER TROCHANTER OF UNSP FEMUR, INIT Comment: 10/08/17- Right hip greater trochanteric fracture s/p fall at home, ORIF of right hip 09/26/17. Cont PT/OT as tolerated. Assist with amulation/ Fall precuations. Pain control with Sledge 7.5mg/325mg Q6H. Bowel regimen while on opiates. Ortho follow up Follow up with orthopedic surgeon as required. (2) Physical deconditioning Current Visit: Yes Status: Acute Base Code: R53.81 - OTHER MALAISE Comment : 10/08/17- Pt. lives alone and uses walker. PT/OT following daily. SW onboard for outpatient follolw up and plan. (3) Atrial fibrillation Current Visit: Yes Status: Acute Base Code: I48.91 - UNSPECIFIED ATRIAL FIBRILLATION Comment: 10/08/17 on tele currently in NSR. On Toprolol 25mg for rate control, amiodarone 200mg QD, anticoagualtion with Lovenox 30mg sc. Pt's Hb dropped: 12.9 --> 9. No active bleeding identified. Transfused 1 unit PRBC to keep Hb > 8 as per ACC/AHA guidlines. (4) Hypertension Current Visit: Yes Status: Acute Base Code: I10 - ESSENTIAL (PRIMARY) HYPERTENSION Comment: 10/08/17- Stable: BP, HR continue Toprol 25mg daily with holding parameters for SP < 120. (5) Anemia Current Visit: Yes Status: Acute Qualifiers: Anemia type: unspecified type Qualified Code(s): D64.9 - Anemia, unspecified Base Code: D64.9 - ANEMIA, UNSPECIFIED Comment: - Hb 8.4 after transfusing 1 unit PRBC on 10/04. - no active bleed identified and patient's vitals stable. On Lovenox 30mg sc QD - repeat H+H in the morning. (6) DVT prophylaxis Current Visit: No Status: Acute Base Code: [id number] - Comment: 10/04/17- Pt. is high risk for DVT due to history of a-fib and decreased mobility secondary to right hip fracture on 09/23/17. Pt. follows cardiology for a-fib management. Continue aspirin 81mg daily and lovenox 30mg sc daily. Plan to work with PT to increase ambulation. (7) Full code status Current Visit: Yes Status: Acute Base Code: Z78.9 - OTHER SPECIFIED HEALTH STATUS Comment: 10/08/17- Code status discussed with patient. He was previously DNR but has changed his mind. This has been updated in chart. - Disposition Cont PT/OT daily. SW assessments for d/c plans and home care follow up.
[2017-10-08] MEDS: BREO (FLUTICASONE/VILANTEROL) 200MCG/25MCG INHALER INH SCH (10:02)
[2017-10-08] MEDS: UMECLIDINIUM BROMIDE (INCRUSE) 62.5MCG IH SCH (10:02)
[2017-10-08] MEDS: ASPIRIN 81 MG TABEC PO SCH (10:14)
[2017-10-08] MEDS: AMIODARONE HCL 200 MG TABLET PO SCH (10:15)
[2017-10-08] MEDS: MULTIVITAMINS/MINERALS TABLET PO SCH (10:15)
[2017-10-08] MEDS: DOCUSATE SODIUM 100 MG CAPSULE PO SCH ×2 (10:15→22:13)
[2017-10-08] MEDS: CHOLECALCIFEROL 1,000 UNIT TABLET PO SCH (10:15)
[2017-10-08] MEDS: METOPROLOL SUCC 25 MG TAB.ER PO SCH (10:16)
[2017-10-08] MEDS: ENOXAPARIN 30 MG/0.3 ML SYR SQ SCH (10:16)
[2017-10-08] MEDS: LISINOPRIL 5 MG TABLET PO SCH (22:14)
[2017-10-09 06:43] LABS: HEMATOCRIT 26.5 % (42.0-52.0); HEMOGLOBIN 7.9 gm/dl (14.0-18.0)
[2017-10-09] MEDS: PANTOPRAZOLE SODIUM 40 MG TABLET PO SCH ×2 (07:00→16:16)
[2017-10-09] MEDS: BREO (FLUTICASONE/VILANTEROL) 200MCG/25MCG INHALER INH SCH (10:04)
[2017-10-09] MEDS: UMECLIDINIUM BROMIDE (INCRUSE) 62.5MCG IH SCH (10:04)
[2017-10-09] MEDS: ENOXAPARIN 30 MG/0.3 ML SYR SQ SCH (10:40)
[2017-10-09] MEDS: AMIODARONE HCL 200 MG TABLET PO SCH (10:41)
[2017-10-09] MEDS: CHOLECALCIFEROL 1,000 UNIT TABLET PO SCH (10:41)
[2017-10-09] MEDS: MULTIVITAMINS/MINERALS TABLET PO SCH (10:41)
[2017-10-09] MEDS: METOPROLOL SUCC 25 MG TAB.ER PO SCH (10:41)
[2017-10-09] MEDS: ASPIRIN 81 MG TABEC PO SCH (10:41)
[2017-10-09] MEDS: DOCUSATE SODIUM 100 MG CAPSULE PO SCH ×2 (10:41→21:25)
--- NOTE | 2017-10-09 14:14 | Occupational Therapy Tx Note ---
Occupational Therapy Tx Note - Treatment Note Tolerated: Good Total Time Spent With Patient: 45 (ADL) Occupational Therapy Treatment Note: Detail (S: Pt up in chair, ready for showering. O: Sit to stand and amb to commode with 2 wheeled walker and completed toileting Indly. Pt able to doff PJ bottoms, briefs, slippers and t- shirt Indly. Amb to shower bench and completed showering Indly in sitting and standing using grab bar and hand held shower with assist for washing back. Pt dried self Indly and donned t-shirt, briefs, PJ bottoms and slippers Indly using modified dressing technique although he had difficulty with right slipper. Pt amb back to chair with 2 wheeled walker and combed hair Indly. A : Modified Ind with showering and total body dressing, decreased UE strength and ROM noted during UE dressing/bathing) Occupational Therapy Problem List: Detail (1. Pt unable to amb. household distances 2. Decreased ind. w/ LB drsg. 3. Decreased endurance to complete ADLs. 4. Decreased ind. w/ showering) Occupational Therapy Goals: 1. Pt to be able to amb household distances using AD if needed. 2. Ind w/ LB drsg using ADL equipment if needed. 3. Ind w/ showering using ADL equipment if needed. 4. Pt to demonstrate improved endurance to complete ADLs w/ no rest breaks needed Prognosis: Good Occupational Therapy Plan: OT to treat 2-4x a week M-F to address ADL limitations, UE weakness, and decreased endurance.
--- NOTE | 2017-10-09 14:40 | Physical Therapy Tx Note ---
Physical Therapy Tx Note - Treatment Note Tolerated: Good Total Time Spent With Patient: 35 Physical Therapy Tx Note: Detail (Patient was seated in chair sleeping upon SUPERVISOR FELTING arrival. Patient states right hip sore. Patient transferred sit to and from stand independently. Patient ambulated 176 feet with wheeled walker SBA x1 with 2L oxygen. Patient transferred sit to and from stand indepedently. Patient ambulated 176 feet with wheeled walker SBA x1 with 2L oxygen. Patient performed the following exercises x10 reps each: seated hip abduction, isometric hip adduction, ankle pumps, quad sets, hamstring curls with yellow theraband, seated heel slides, and glut squeezes. Patient transferred sit to and from stand independently. Patient ambulated 10 feet with wheeled walker SBA x1. Patient transferred sit to supine independently. Patient tolerated treatment well. Patient displays decreased strength and endurance with exercises and ambulation. Patient was left supine in bed on 2L oxygen with call light within reach.) Physical Therapy Problem List: Detail (1. LE weakness 2. LE ROM deficits 3. Gait impairments 4. Balance deficits 5. LE pain) Physical Therapy Goals: 1. Pt. will independently ambulate 100ft with an AD with no reports of increased pain and with more than 50% weight bearing. 2. PT will administer the Tinetti Balance Assessment Tool to assess the pt.'s overall balance. 3. Pt. will verbalize and demonstrate understanding of HEP. 4. Pt. will independently ascend and descend 3 steps with no reports of increased pain in the R LE. Prognosis: Good Physical Therapy Plan: Pt. will be seen 1-2x/day Monday-Monday during the course of inpatient physical therapy. Treatment will consist of therapeutic exercise of LE stengthening exercises, gait training, balance training, and pt. education on completing safe transfers around the home setting.
[2017-10-09] MEDS: ACETAMINOPHEN 325 MG TAB PO PRN (21:25)
[2017-10-09] MEDS: LISINOPRIL 5 MG TABLET PO SCH (21:25)
[2017-10-10] MEDS: PANTOPRAZOLE SODIUM 40 MG TABLET PO SCH ×2 (06:17→15:56)
[2017-10-10] MEDS: DOCUSATE SODIUM 100 MG CAPSULE PO SCH ×2 (09:25→21:45)
[2017-10-10] MEDS: METOPROLOL SUCC 25 MG TAB.ER PO SCH (09:25)
[2017-10-10] MEDS: CHOLECALCIFEROL 1,000 UNIT TABLET PO SCH (09:25)
[2017-10-10] MEDS: ASPIRIN 81 MG TABEC PO SCH (09:25)
[2017-10-10] MEDS: ENOXAPARIN 30 MG/0.3 ML SYR SQ SCH (09:25)
[2017-10-10] MEDS: AMIODARONE HCL 200 MG TABLET PO SCH (09:25)
[2017-10-10] MEDS: MULTIVITAMINS/MINERALS TABLET PO SCH (09:25)
[2017-10-10] MEDS: UMECLIDINIUM BROMIDE (INCRUSE) 62.5MCG IH SCH (09:27)
[2017-10-10] MEDS: BREO (FLUTICASONE/VILANTEROL) 200MCG/25MCG INHALER INH SCH (09:28)
--- NOTE | 2017-10-10 11:16 | Occupational Therapy Tx Note ---
Occupational Therapy Tx Note - Treatment Note Tolerated: Good Total Time Spent With Patient: 35 (ther activity) Occupational Therapy Treatment Note: Detail (S: Pt ready for OT, sitting in chair. O: Sit to stand and amb 110 feet x 2 with 2 wheeled walker and 2 liters of oxygen. Transported to rehab gym via wheelchair. PROM to right shoulder flexion x 5 within pain tolerance. Significant crepitus noted with right shoulder flexion. Jhonny reaching, resisted pinch activity with graded clothespins with above shoulder height reaching as he was able and with multiple short rest breaks. A: Jhonny UE endurance and ROM limited right worse than left. Improving functional mobility.) Occupational Therapy Problem List: Detail (1. Pt unable to amb. household distances 2. Decreased ind. w/ LB drsg. 3. Decreased endurance to complete ADLs. 4. Decreased ind. w/ showering) Occupational Therapy Goals: 1. Pt to be able to amb household distances using AD if needed. 2. Ind w/ LB drsg using ADL equipment if needed. 3. Ind w/ showering using ADL equipment if needed. 4. Pt to demonstrate improved endurance to complete ADLs w/ no rest breaks needed Prognosis: Good Occupational Therapy Plan: OT to treat 2-4x a week M-F to address ADL limitations, UE weakness, and decreased endurance.
--- NOTE | 2017-10-10 14:49 | Physical Therapy Tx Note ---
Physical Therapy Tx Note - Treatment Note Tolerated: Good Total Time Spent With Patient: 35 Physical Therapy Tx Note: Detail (The patient was in bathroom when PT arrived. The patient ambulated with wheeled walker and 2 L of O2 with supervision and handling of equipment only a distance of 158 feet x 1. Shortness of breath was noted with ambulation. The patient completed LE strengthening exercises: R hip marching x 3 reps, LAQ, hip adductor squeezes, hip abductor squeezes with resistance, hamstring curls all x 10 reps. The patient was left in recliner with call light in reach.) Physical Therapy Problem List: Detail (1. LE weakness 2. LE ROM deficits 3. Gait impairments 4. Balance deficits 5. LE pain) Physical Therapy Goals: 1. Pt. will independently ambulate 100ft with an AD with no reports of increased pain and with more than 50% weight bearing. 2. PT will administer the Tinetti Balance Assessment Tool to assess the pt.'s overall balance. 3. Pt. will verbalize and demonstrate understanding of HEP. 4. Pt. will independently ascend and descend 3 steps with no reports of increased pain in the R LE. Physical Therapy Plan: Pt. will be seen 1-2x/day Monday-Monday during the course of inpatient physical therapy. Treatment will consist of therapeutic exercise of LE stengthening exercises, gait training, balance training, and pt. education on completing safe transfers around the home setting.
[2017-10-10] MEDS: MAGNESIUM HYDROXIDE 30 ML UDC PO PRN (21:45)
[2017-10-10] MEDS: LISINOPRIL 5 MG TABLET PO SCH (21:45)
[2017-10-11] MEDS: ACETAMINOPHEN 325 MG TAB PO PRN (00:01)
[2017-10-11 06:21] LABS: HEMATOCRIT 26.9 % (42.0-52.0); HEMOGLOBIN 7.9 gm/dl (14.0-18.0)
[2017-10-11 06:56] LABS: % SATURATION 23 % (20-50)
[2017-10-11] MEDS: PANTOPRAZOLE SODIUM 40 MG TABLET PO SCH ×2 (06:59→16:23)
[2017-10-11] MEDS: UMECLIDINIUM BROMIDE (INCRUSE) 62.5MCG IH SCH (09:38)
[2017-10-11] MEDS: BREO (FLUTICASONE/VILANTEROL) 200MCG/25MCG INHALER INH SCH (09:39)
[2017-10-11] MEDS: ASPIRIN 81 MG TABEC PO SCH (10:28)
[2017-10-11] MEDS: ENOXAPARIN 30 MG/0.3 ML SYR SQ SCH (10:28)
[2017-10-11] MEDS: AMIODARONE HCL 200 MG TABLET PO SCH (10:28)
[2017-10-11] MEDS: METOPROLOL SUCC 25 MG TAB.ER PO SCH (10:28)
[2017-10-11] MEDS: DOCUSATE SODIUM 100 MG CAPSULE PO SCH ×2 (10:28→21:26)
[2017-10-11] MEDS: CHOLECALCIFEROL 1,000 UNIT TABLET PO SCH (10:28)
[2017-10-11] MEDS: MULTIVITAMINS/MINERALS TABLET PO SCH (10:28)
[2017-10-11] MEDS: FERROUS SULFATE 325 MG TAB PO SCH ×2 (10:33→21:26)
[2017-10-11] MEDS: ASCORBIC ACID 500 MG TAB PO SCH ×2 (10:33→21:27)
--- NOTE | 2017-10-11 11:26 | Physical Therapy Tx Note ---
Physical Therapy Tx Note - Treatment Note Tolerated: Good Total Time Spent With Patient: 40 Physical Therapy Tx Note: Detail (Patient was sitting in chair upon WHEELCHAIR VAN OPERATOR FIRST RESPONDER arrival. Patient states not feeling very well today, blood pressure low. Patient transferred sit to and from stand independently. Patient ambulated 144 feet with wheeled walker with 2L oxygen SBA x1. Patient performed the following exercises x10 reps each: seated hip flexion, LAQ, hamstring curls with red theraband, seated hip abduction with red theraband, seated isometric hip adduction, seated heel raises, seated toe raises, and heel slides. Patient tolerated treatment well. Patient displays some shortness of breath with ambulation. Patient displays decreased strength and endurance with seated hip flexion, seated hip abduction, and LAQ. Patient reports feeling good after treatment. Patient was left seated in chair with call light within reach.) Physical Therapy Problem List: Detail (1. LE weakness 2. LE ROM deficits 3. Gait impairments 4. Balance deficits 5. LE pain) Physical Therapy Goals: 1. Pt. will independently ambulate 100ft with an AD with no reports of increased pain and with more than 50% weight bearing. 2. PT will administer the Tinetti Balance Assessment Tool to assess the pt.'s overall balance. 3. Pt. will verbalize and demonstrate understanding of HEP. 4. Pt. will independently ascend and descend 3 steps with no reports of increased pain in the R LE. Prognosis: Good Physical Therapy Plan: Pt. will be seen 1-2x/day Monday-Monday during the course of inpatient physical therapy. Treatment will consist of therapeutic exercise of LE stengthening exercises, gait training, balance training, and pt. education on completing safe transfers around the home setting.
--- NOTE | 2017-10-11 14:48 | Physical Therapy Tx Note ---
Physical Therapy Tx Note - Treatment Note Tolerated: Good Total Time Spent With Patient: 30 Physical Therapy Tx Note: Detail (Patient was seated in chair upon FOOD SERVICE CASHIER arrival. Patient transferred sit to and from stand independently. Patient ambulated 176 feet x2 with wheeled walker with 2L oxygen SBA x1. Patient ascended and descended 3 steps CGA x1 with using stairwell railing and walker. Patient performed LAQ, seated hip abduction with red theraband, and glut squeezes, attempted seated hip flexion but stopped due to right hip soreness. Patient tolerated treatment well. Patient displays decreased strength and endurance with exercises. Patient displays good understanding of stair climbing. Patient was left seated in chair with 2L oxygen with call light within reach.) Physical Therapy Problem List: Detail (1. LE weakness 2. LE ROM deficits 3. Gait impairments 4. Balance deficits 5. LE pain) Physical Therapy Goals: 1. Pt. will independently ambulate 100ft with an AD with no reports of increased pain and with more than 50% weight bearing. 2. PT will administer the Tinetti Balance Assessment Tool to assess the pt.'s overall balance. 3. Pt. will verbalize and demonstrate understanding of HEP. 4. Pt. will independently ascend and descend 3 steps with no reports of increased pain in the R LE. Prognosis: Good Physical Therapy Plan: Pt. will be seen 1-2x/day Monday-Monday during the course of inpatient physical therapy. Treatment will consist of therapeutic exercise of LE stengthening exercises, gait training, balance training, and pt. education on completing safe transfers around the home setting.
[2017-10-11] MEDS: LISINOPRIL 5 MG TABLET PO SCH (21:26)
[2017-10-12] MEDS: PANTOPRAZOLE SODIUM 40 MG TABLET PO SCH ×2 (06:14→17:11)
[2017-10-12] MEDS: UMECLIDINIUM BROMIDE (INCRUSE) 62.5MCG IH SCH (10:14)
[2017-10-12] MEDS: BREO (FLUTICASONE/VILANTEROL) 200MCG/25MCG INHALER INH SCH (10:14)
[2017-10-12] MEDS: CHOLECALCIFEROL 1,000 UNIT TABLET PO SCH (10:20)
[2017-10-12] MEDS: METOPROLOL SUCC 25 MG TAB.ER PO SCH (10:21)
[2017-10-12] MEDS: ENOXAPARIN 30 MG/0.3 ML SYR SQ SCH (10:21)
[2017-10-12] MEDS: FERROUS SULFATE 325 MG TAB PO SCH ×2 (10:25→22:04)
[2017-10-12] MEDS: ASCORBIC ACID 500 MG TAB PO SCH ×2 (10:25→22:05)
[2017-10-12] MEDS: AMIODARONE HCL 200 MG TABLET PO SCH (10:25)
[2017-10-12] MEDS: ASPIRIN 81 MG TABEC PO SCH (10:26)
[2017-10-12] MEDS: MULTIVITAMINS/MINERALS TABLET PO SCH (10:26)
[2017-10-12] MEDS: DOCUSATE SODIUM 100 MG CAPSULE PO SCH ×2 (10:26→22:05)
--- NOTE | 2017-10-12 12:25 | Physical Therapy Tx Note ---
Physical Therapy Tx Note - Treatment Note Tolerated: Good Total Time Spent With Patient: 30 Physical Therapy Tx Note: Detail (Patient was showering with nursing upon ENGRAVED ROLLER INSPECTOR arrival. Respiratory administered inhalers, and nursing provided medication after shower. Patient transferred sit to and from stand independently. Patient ambulated 181 feet x2 with wheeled walker with 2L oxygen. Patient performed the following exercises x10 reps each: seated hip flexion, seated hip abduction with red theraband, isometric hip adduction, glut squeezes, LAQ, and hamstring curls with red theraband. Patient tolerated treatment well. Patient displays decreased strength and endurance with seated hip flexion, seated hip abduction, glut squeezes, and LAQ. Patient reports right thigh sore after treatment. Patient was left seated in chair with call light within reach.) Physical Therapy Problem List: Detail (1. LE weakness 2. LE ROM deficits 3. Gait impairments 4. Balance deficits 5. LE pain) Physical Therapy Goals: 1. Pt. will independently ambulate 100ft with an AD with no reports of increased pain and with more than 50% weight bearing. 2. PT will administer the Tinetti Balance Assessment Tool to assess the pt.'s overall balance. 3. Pt. will verbalize and demonstrate understanding of HEP. 4. Pt. will independently ascend and descend 3 steps with no reports of increased pain in the R LE. Prognosis: Good Physical Therapy Plan: Pt. will be seen 1-2x/day Monday-Monday during the course of inpatient physical therapy. Treatment will consist of therapeutic exercise of LE stengthening exercises, gait training, balance training, and pt. education on completing safe transfers around the home setting.
--- NOTE | 2017-10-12 14:28 | Physical Therapy Tx Note ---
Physical Therapy Tx Note - Treatment Note Tolerated: Good Total Time Spent With Patient: 5 Physical Therapy Tx Note: Detail (Patient was seated in wheelchair. Patient performed car transfer SBA x1. Patient required min assistance to lift right LE into car. Patient was left in car with daughter and grandson.) Physical Therapy Problem List: Detail (1. LE weakness 2. LE ROM deficits 3. Gait impairments 4. Balance deficits 5. LE pain) Physical Therapy Goals: 1. Pt. will independently ambulate 100ft with an AD with no reports of increased pain and with more than 50% weight bearing. 2. PT will administer the Tinetti Balance Assessment Tool to assess the pt.'s overall balance. 3. Pt. will verbalize and demonstrate understanding of HEP. 4. Pt. will independently ascend and descend 3 steps with no reports of increased pain in the R LE. Prognosis: Good Physical Therapy Plan: Pt. will be seen 1-2x/day Monday-Monday during the course of inpatient physical therapy. Treatment will consist of therapeutic exercise of LE stengthening exercises, gait training, balance training, and pt. education on completing safe transfers around the home setting.
[2017-10-12] MEDS: LISINOPRIL 5 MG TABLET PO SCH (22:05)
[2017-10-13] MEDS: PANTOPRAZOLE SODIUM 40 MG TABLET PO SCH ×2 (07:31→17:18)
[2017-10-13] MEDS: BREO (FLUTICASONE/VILANTEROL) 200MCG/25MCG INHALER INH SCH (09:27)
[2017-10-13] MEDS: UMECLIDINIUM BROMIDE (INCRUSE) 62.5MCG IH SCH (09:28)
[2017-10-13] MEDS: CHOLECALCIFEROL 1,000 UNIT TABLET PO SCH (09:58)
[2017-10-13] MEDS: DOCUSATE SODIUM 100 MG CAPSULE PO SCH ×2 (09:58→21:55)
[2017-10-13] MEDS: MULTIVITAMINS/MINERALS TABLET PO SCH (09:58)
[2017-10-13] MEDS: FERROUS SULFATE 325 MG TAB PO SCH ×2 (09:58→21:55)
[2017-10-13] MEDS: ASCORBIC ACID 500 MG TAB PO SCH ×2 (09:58→21:55)
[2017-10-13] MEDS: METOPROLOL SUCC 25 MG TAB.ER PO SCH ×2 (09:59→10:02)
[2017-10-13] MEDS: ASPIRIN 81 MG TABEC PO SCH (09:59)
[2017-10-13] MEDS: AMIODARONE HCL 200 MG TABLET PO SCH (09:59)
[2017-10-13] MEDS: ENOXAPARIN 30 MG/0.3 ML SYR SQ SCH (09:59)
--- NOTE | 2017-10-13 12:21 | Physical Therapy Tx Note ---
Physical Therapy Tx Note - Treatment Note Tolerated: Good Total Time Spent With Patient: 30 Physical Therapy Tx Note: Detail (Pt. reports he was a little tired today, but that his pain was down. Pt. completed the Tinetti Balance Assessment Tool scoring a 19/28 indicating a moderate fall risk. The pt. ambulated 115 feet with front wheeled walker on 3L of oxygen CGA x1. Pt. sat in the chapel for a few minutes to rest. The pt. did exhibit shortness of breath upon sitting down. Pt. proceeded to ambulate roughly 300 ft. CGA x1. Once seated back into his room , the pt. was short of breath. When assessing balance, the pt. was able to rise with one attempt from the chair, but required the use of his arms, the pt. was a little unsteady with standing with his eyes closed, and the pt. was unable to make a 360 turn with continuous steps. When assessing gait, the pt. exhibited asymmetric step length with a shorter step on the L, and was able to have foot clearance bilaterally on the hard floor, but did not have complete foot clearance on the R when walking on the carpet in the chapel. The pt. reported no increase in pain after therapy, but did exhibit shortness of breath. Pt. was left seated with 3L of oxygen hooked up and his call light available. Nursing staff was notified.) Physical Therapy Problem List: Detail (1. LE weakness 2. LE ROM deficits 3. Gait impairments 4. Balance deficits 5. LE pain) Physical Therapy Goals: 1. Pt. will independently ambulate 100ft with an AD with no reports of increased pain and with more than 50% weight bearing. 2. PT will administer the Tinetti Balance Assessment Tool to assess the pt.'s overall balance. (MET). 3. Pt. will verbalize and demonstrate understanding of HEP. 4. Pt. will independently ascend and descend 3 steps with no reports of increased pain in the R LE. Physical Therapy Plan: Pt. will be seen 1-2x/day Monday-Monday during the course of inpatient physical therapy. Treatment will consist of therapeutic exercise of LE stengthening exercises, gait training, balance training, and pt. education on completing safe transfers around the home setting.
--- NOTE | 2017-10-13 14:55 | Physical Therapy Tx Note ---
Physical Therapy Tx Note - Treatment Note Tolerated: Good Total Time Spent With Patient: 35 Physical Therapy Tx Note: Detail (Patient was reclined in chair upon MARKETING INFORMATION ANALYST arrival. Patient states right thigh sore this afternoon. Patient transferred sit to and from stand independently. Patient ambulated 176 feet x2 with wheeled walker with 2L oxygen SBA x1. Patient transferred sit to and from independently. Patient performed the following exercises: feet together with eyes closed x30 seconds, feet together with looking up and down x30 seconds, feet together with looking side to side x30 seconds, feet together with pertubations x30 seconds, stride stance x30 seconds, marching x10 reps, standing hip abduction right x10 reps, and standing hip extension right x10 reps. Patient tolerated treatment well. Patient displays decreased balance with feet together eyes closed, feet together looking side to side, stride stance, and feet together with pertubations. Patient displays decreased strength and endurance with standing marching, standing hip abduction, and standing hip extension. Patient reports back tired after standing exercises. Patient was left seated in chair with call light within reach on 2L oxygen.) Physical Therapy Problem List: Detail (1. LE weakness 2. LE ROM deficits 3. Gait impairments 4. Balance deficits 5. LE pain) Physical Therapy Goals: 1. Pt. will independently ambulate 100ft with an AD with no reports of increased pain and with more than 50% weight bearing. 2. PT will administer the Tinetti Balance Assessment Tool to assess the pt.'s overall balance. (MET). 3. Pt. will verbalize and demonstrate understanding of HEP. 4. Pt. will independently ascend and descend 3 steps with no reports of increased pain in the R LE. Prognosis: Good Physical Therapy Plan: Pt. will be seen 1-2x/day Monday-Monday during the course of inpatient physical therapy. Treatment will consist of therapeutic exercise of LE stengthening exercises, gait training, balance training, and pt. education on completing safe transfers around the home setting.
[2017-10-13] MEDS: LISINOPRIL 5 MG TABLET PO SCH (21:55)
[2017-10-14] MEDS: PANTOPRAZOLE SODIUM 40 MG TABLET PO SCH ×2 (08:36→16:19)
[2017-10-14] MEDS: MULTIVITAMINS/MINERALS TABLET PO SCH (09:33)
[2017-10-14] MEDS: DOCUSATE SODIUM 100 MG CAPSULE PO SCH ×2 (09:33→21:25)
[2017-10-14] MEDS: ENOXAPARIN 30 MG/0.3 ML SYR SQ SCH (09:33)
[2017-10-14] MEDS: ASPIRIN 81 MG TABEC PO SCH (09:33)
[2017-10-14] MEDS: FERROUS SULFATE 325 MG TAB PO SCH ×2 (09:33→21:25)
[2017-10-14] MEDS: AMIODARONE HCL 200 MG TABLET PO SCH (09:33)
[2017-10-14] MEDS: ASCORBIC ACID 500 MG TAB PO SCH ×2 (09:34→21:25)
[2017-10-14] MEDS: CHOLECALCIFEROL 1,000 UNIT TABLET PO SCH (09:34)
[2017-10-14] MEDS: METOPROLOL SUCC 25 MG TAB.ER PO SCH (09:34)
[2017-10-14] MEDS: UMECLIDINIUM BROMIDE (INCRUSE) 62.5MCG IH SCH (10:02)
[2017-10-14] MEDS: BREO (FLUTICASONE/VILANTEROL) 200MCG/25MCG INHALER INH SCH (10:03)
[2017-10-14] MEDS: LISINOPRIL 5 MG TABLET PO SCH (21:25)
[2017-10-15] MEDS: PANTOPRAZOLE SODIUM 40 MG TABLET PO SCH ×2 (06:25→16:46)
[2017-10-15] MEDS ORDERED: ASPIRIN 325 MG TABLET PO ONE (08:34)
[2017-10-15] MEDS: BREO (FLUTICASONE/VILANTEROL) 200MCG/25MCG INHALER INH SCH (10:31)
[2017-10-15] MEDS: UMECLIDINIUM BROMIDE (INCRUSE) 62.5MCG IH SCH (10:31)
[2017-10-15] MEDS: FERROUS SULFATE 325 MG TAB PO SCH ×2 (10:42→21:16)
[2017-10-15] MEDS: ASPIRIN 81 MG TABEC PO SCH (10:42)
[2017-10-15] MEDS: ASCORBIC ACID 500 MG TAB PO SCH ×2 (10:42→21:16)
[2017-10-15] MEDS: AMIODARONE HCL 200 MG TABLET PO SCH (10:43)
[2017-10-15] MEDS: ENOXAPARIN 30 MG/0.3 ML SYR SQ SCH (10:43)
[2017-10-15] MEDS: CHOLECALCIFEROL 1,000 UNIT TABLET PO SCH (10:43)
[2017-10-15] MEDS: METOPROLOL SUCC 25 MG TAB.ER PO SCH (10:43)
[2017-10-15] MEDS: MULTIVITAMINS/MINERALS TABLET PO SCH (10:43)
[2017-10-15] MEDS: DOCUSATE SODIUM 100 MG CAPSULE PO SCH ×2 (10:43→21:16)
[2017-10-15] MEDS: LISINOPRIL 5 MG TABLET PO SCH (21:17)
[2017-10-16] MEDS: PANTOPRAZOLE SODIUM 40 MG TABLET PO SCH ×2 (06:16→16:12)
[2017-10-16] MEDS: UMECLIDINIUM BROMIDE (INCRUSE) 62.5MCG IH SCH (09:17)
[2017-10-16] MEDS: BREO (FLUTICASONE/VILANTEROL) 200MCG/25MCG INHALER INH SCH (09:17)
[2017-10-16] MEDS: MULTIVITAMINS/MINERALS TABLET PO SCH (10:57)
[2017-10-16] MEDS: FERROUS SULFATE 325 MG TAB PO SCH ×2 (10:57→22:00)
[2017-10-16] MEDS: CHOLECALCIFEROL 1,000 UNIT TABLET PO SCH (10:57)
[2017-10-16] MEDS: DOCUSATE SODIUM 100 MG CAPSULE PO SCH ×2 (10:57→22:00)
[2017-10-16] MEDS: ASCORBIC ACID 500 MG TAB PO SCH ×2 (10:57→21:59)
[2017-10-16] MEDS: METOPROLOL SUCC 25 MG TAB.ER PO SCH (10:57)
[2017-10-16] MEDS: ENOXAPARIN 30 MG/0.3 ML SYR SQ SCH (10:57)
[2017-10-16] MEDS: AMIODARONE HCL 200 MG TABLET PO SCH (10:57)
[2017-10-16] MEDS: ASPIRIN 81 MG TABEC PO SCH (10:57)
--- NOTE | 2017-10-16 11:44 | Occupational Therapy Tx Note ---
Occupational Therapy Tx Note - Treatment Note Tolerated: Good Total Time Spent With Patient: 60 (ther activity) Occupational Therapy Treatment Note: Detail (S: Pt up in chair, ready for therapy. O: Sit to stand and amb to surgical waiting room with 4 wheeled walker and 2 liters of oxygen. After short rest break, pt ambulated to rehab gym with 4 wheeled walker. Pt educated re: use of walker in kitchen for meal prep, for home mgmt activities and laundry tasks. Pt verbalized understanding. Pt completed simulated meal prep activity including reaching in cupboards, sliding objects on countertop and using walker seat for transporting objects. Pt then completed ronaldo UE reaching and resistive pinch activities with clothespins, all with ronaldo UEs. Pt ambulated back to surgical waiting room and rested several minutes, he then amb back to room with 4 wheeled walker and 2 liters of oxygen. Pt purchased sap administrator for LE dressing. A: Pt demonstrates safe and Ind simulated IADLs with 4 wheeled walker, shortness of breath continues with ambulation.) Occupational Therapy Problem List: Detail (1. Pt unable to amb. household distances 2. Decreased ind. w/ LB drsg. 3. Decreased endurance to complete ADLs. 4. Decreased ind. w/ showering) Occupational Therapy Goals: 1. Pt to be able to amb household distances using AD if needed. 2. Ind w/ LB drsg using ADL equipment if needed. 3. Ind w/ showering using ADL equipment if needed. 4. Pt to demonstrate improved endurance to complete ADLs w/ no rest breaks needed Prognosis: Good Occupational Therapy Plan: OT to treat 2-4x a week M- to address ADL limitations, UE weakness, and decreased endurance.
--- NOTE | 2017-10-16 16:10 | Physical Therapy Tx Note ---
Physical Therapy Tx Note - Treatment Note Tolerated: Good Total Time Spent With Patient: 35 Physical Therapy Tx Note: Detail (The patient was up in chair when PT arrived. The patient ambulated with 4 wheeled walker a distance of 160 feet x 2 with supervision for safety and 3 L of O 2. The patient exhibited shortness of breath after ambulating. LE strengthening exercises supine: SLR, SAQ, hip abduction, gluteal sets all x 10 reps. The patient exhibited increased strength. The patient was left in chair with call light in reach.) Physical Therapy Problem List: Detail (1. LE weakness 2. LE ROM deficits 3. Gait impairments 4. Balance deficits 5. LE pain) Physical Therapy Goals: 1. Pt. will independently ambulate 100ft with an AD with no reports of increased pain and with more than 50% weight bearing. 2. PT will administer the Tinetti Balance Assessment Tool to assess the pt.'s overall balance. (MET). 3. Pt. will verbalize and demonstrate understanding of HEP. 4. Pt. will independently ascend and descend 3 steps with no reports of increased pain in the R LE. Physical Therapy Plan: Pt. will be seen 1-2x/day Monday-Monday during the course of inpatient physical therapy. Treatment will consist of therapeutic exercise of LE stengthening exercises, gait training, balance training, and pt. education on completing safe transfers around the home setting.
[2017-10-16] MEDS: LISINOPRIL 5 MG TABLET PO SCH (21:59)
[2017-10-17] MEDS: DOCUSATE SODIUM 100 MG CAPSULE PO SCH ×2 (09:12→22:25)
[2017-10-17] MEDS: FERROUS SULFATE 325 MG TAB PO SCH ×2 (09:12→22:25)
[2017-10-17] MEDS: ENOXAPARIN 30 MG/0.3 ML SYR SQ SCH (09:12)
[2017-10-17] MEDS: MULTIVITAMINS/MINERALS TABLET PO SCH (09:12)
[2017-10-17] MEDS: METOPROLOL SUCC 25 MG TAB.ER PO SCH (09:12)
[2017-10-17] MEDS: PANTOPRAZOLE SODIUM 40 MG TABLET PO SCH ×2 (09:12→17:11)
[2017-10-17] MEDS: ASCORBIC ACID 500 MG TAB PO SCH ×2 (09:12→22:25)
[2017-10-17] MEDS: CHOLECALCIFEROL 1,000 UNIT TABLET PO SCH (09:12)
[2017-10-17] MEDS: AMIODARONE HCL 200 MG TABLET PO SCH (09:13)
[2017-10-17] MEDS: ASPIRIN 81 MG TABEC PO SCH (09:13)
[2017-10-17] MEDS: UMECLIDINIUM BROMIDE (INCRUSE) 62.5MCG IH SCH (09:35)
[2017-10-17] MEDS: BREO (FLUTICASONE/VILANTEROL) 200MCG/25MCG INHALER INH SCH (09:36)
--- NOTE | 2017-10-17 11:18 | Physical Therapy Tx Note ---
Physical Therapy Tx Note - Treatment Note Tolerated: Good Total Time Spent With Patient: 30 Physical Therapy Tx Note: Detail (The patient was on the edge of the bed when PT arrived finishing dressing. The patient's balance was retested on the Tinetti scale. LE strength was retested: R LE : R hip flexors 4-/5, hip adductors 4/5, hip abductors 4-/5, hip extensors 4-/5, ER 3+/5, IR 4-/5, knee flexors 4/5, extensors 4-/5, ankle musculature 4+/5, L LE hip musculature was generally 4/5, knee musculature 4+/5, ankle musculature 4+/5. The patient ambulated with wheeled walker 158 feet x 2 with CG of 1 with 3L of O2. The patient was left in recliner with call light in place.) Physical Therapy Problem List: Detail (1. LE weakness 2. LE ROM deficits 3. Gait impairments 4. Balance deficits 5. LE pain) Physical Therapy Goals: 1. Pt. will independently ambulate 100ft with an AD with no reports of increased pain and with more than 50% weight bearing. 2. PT will administer the Tinetti Balance Assessment Tool to assess the pt.'s overall balance. (MET). 3. Pt. will verbalize and demonstrate understanding of HEP. 4. Pt. will independently ascend and descend 3 steps with no reports of increased pain in the R LE. Physical Therapy Plan: Pt. will be seen 1-2x/day Monday-Monday during the course of inpatient physical therapy. Treatment will consist of therapeutic exercise of LE stengthening exercises, gait training, balance training, and pt. education on completing safe transfers around the home setting.
--- NOTE | 2017-10-17 15:58 | Physical Therapy Tx Note ---
Physical Therapy Tx Note - Treatment Note Tolerated: Good Total Time Spent With Patient: 30 Physical Therapy Tx Note: Detail (The patient was sleeping when PT arrived. The patient was easily woken. The patient ambulated 154 feet x 1 with 3 L of O2. The patient completed LE strengthening exercises including: R LE supine SLR x 5 reps, hip abduction, ankle pumps, SAQ, gluteal sets and seated hamstring curls and hip abduction with red T-band all until fatigued. The patient was not instructed to ride his bike at home until ok from orthopedic surgeon is received.) Physical Therapy Problem List: Detail (1. LE weakness 2. LE ROM deficits 3. Gait impairments 4. Balance deficits 5. LE pain) Physical Therapy Goals: 1. Pt. will independently ambulate 100ft with an AD with no reports of increased pain and with more than 50% weight bearing. 2. PT will administer the Tinetti Balance Assessment Tool to assess the pt.'s overall balance. (MET). 3. Pt. will verbalize and demonstrate understanding of HEP. 4. Pt. will independently ascend and descend 3 steps with no reports of increased pain in the R LE. Physical Therapy Plan: Pt. will be seen 1-2x/day Monday-Monday during the course of inpatient physical therapy. Treatment will consist of therapeutic exercise of LE stengthening exercises, gait training, balance training, and pt. education on completing safe transfers around the home setting.
[2017-10-17] MEDS: LISINOPRIL 5 MG TABLET PO SCH (22:25)
[2017-10-18] MEDS: PANTOPRAZOLE SODIUM 40 MG TABLET PO SCH (06:46)
--- NOTE | 2017-10-18 09:18 | Discharge Summary ---
Providers Date of admission: 10/04/17 09:22 Attending physician: Mahin Mendoza Physical Exam - Vital Signs Vital Signs: Vital Signs - Last 24 Hrs Temp Pulse Pulse Resp BP BP Pulse Ox 10/18/17 07:00 98.3 F 71 18 155/87 93 L 10/17/17 22:23 61 18 146/72 99 10/17/17 10:00 97.0 F L 67 18 132/70 96 10/17/17 09:37 76 18 94 L - General General Appearance: Alert, Oriented x3, Cooperative, No acute distress Limitations: No limitations - Head Head exam: Atraumatic, Normocephalic, Normal inspection - Eye Eye exam: Normal appearance, PERRL, Other (glasses) Pupils: Normal accommodation - Neck Neck exam: Normal inspection, Full ROM. negative: Tenderness - Respiratory Respiratory exam: Decreased breath sounds (slightly diminished throughout). negative: Accessory muscle use, Rales, Rhonchi, Wheezes - Cardiovascular Cardiovascular Exam: Irregular rhythm, Systolic murmur Peripheral Pulses: 2+: Radial (R), Radial (L), Dorsalis Pedis (R), Dorsalis Pedis (L) - GI/Abdominal GI/Abdominal exam: Soft, Normal bowel sounds. negative: Tenderness - Rectal Rectal exam: Deferred - exam: Deferred - Extremities Extremities exam: Other (limited mobility of right lower extremtity s/p hip fracture, 2+ pitting edema of RLE) - Neurological Neurological exam: Alert, Oriented X3, Other (ambulates using walker and transfers with assist) - Psychiatric Psychiatric exam: Normal affect, Normal mood - Skin Skin exam: Dry, Normal color, Warm, Other (Right hip healing surgical incisions with stephanie, no drainage or reddness) Hospitalization - Hospitalization Admission Diagnosis: s/p Right hip fracture, deconditioning - Problem List (1) Greater trochanter fracture Current Visit: No Status: Acute Discharge Diagnosis: Encounter type: initial encounter Fracture type: closed Fracture alignment: nondisplaced Laterality: right Qualified Code(s): S72.114A - Nondisplaced fracture of greater trochanter of right femur, initial encounter for closed fracture Base Code: S72.113A - DISP FX OF GREATER TROCHANTER OF UNSP FEMUR, INIT Comment: 10/08/17- Right hip greater trochanteric fracture s/p fall at home, ORIF of right hip 09/26/17. Cont PT/OT as tolerated. Assist with amulation/ Fall precuations. Pain control with [place] 7.5mg/325mg Q6H. Bowel regimen while on opiates. Ortho follow up Follow up with orthopedic surgeon as required. (2) Physical deconditioning Current Visit: Yes Status: Acute Base Code: R53.81 - OTHER MALAISE Comment : 10/08/17- Pt. lives alone and uses walker. PT/OT following daily. SW onboard for outpatient follolw up and plan. (3) Atrial fibrillation Current Visit: Yes Status: Acute Base Code: I48.91 - UNSPECIFIED ATRIAL FIBRILLATION Comment: 10/08/17 on tele currently in NSR. On Toprolol 25mg for rate control, amiodarone 200mg QD, anticoagualtion with Lovenox 30mg sc. Pt's Hb dropped: 12.9 --> 9. No active bleeding identified. Transfused 1 unit PRBC to keep Hb > 8 as per ACC/AHA guidlines. (4) Hypertension Current Visit: Yes Status: Acute Base Code: I10 - ESSENTIAL (PRIMARY) HYPERTENSION Comment: 10/08/17- Stable: BP, HR continue Toprol 25mg daily with holding parameters for SP < 120. (5) Anemia Current Visit: Yes Status: Acute Discharge Diagnosis: Anemia type: unspecified type Qualified Code(s): D64.9 - Anemia, unspecified Base Code: D64.9 - ANEMIA, UNSPECIFIED Comment: - Hb 8.4 after transfusing 1 unit PRBC on 10/04. - no active bleed identified and patient's vitals stable. On Lovenox 30mg sc QD - repeat H+H in the morning. (6) DVT prophylaxis Current Visit: No Status: Acute Base Code: [id number] - Comment: 10/04/17- Pt. is high risk for DVT due to history of a-fib and decreased mobility secondary to right hip fracture on 09/23/17. Pt. follows cardiology for a-fib management. Continue aspirin 81mg daily and lovenox 30mg sc daily. Plan to work with PT to increase ambulation. (7) Full code status Current Visit: Yes Status: Acute Base Code: Z78.9 - OTHER SPECIFIED HEALTH STATUS Comment: 10/08/17- Code status discussed with patient. He was previously DNR but has changed his mind. This has been updated in chart. - Disposition Cont PT/OT daily. SW assessments for d/c plans and home care follow up. - Hospitalization Course Disposition: Still a Patient at [facility] Procedures: Cardiology Procedures 10/15/17 07:53 EKG ONCE Abnormal Labs: Abnormal Lab Results 10/05/17 10/05/17 10/09/17 Range/Units 06:00 06:00 06:12 RBC 2.77 L (4.40-5.70) M/uL Hgb 8.4 L 7.9 L (14.0-18.0) gm/dl Hct 27.6 L 26.5 L (42.0-52.0) % MCV 99.6 H (81-97) fl MCHC 30.4 L (32-36) g/dl RDW 15.8 H (11.5-14.5) % Lymphocytes % 15.6 L (16-45) % Monocytes % 10.5 H (0-9) % Potassium 4.6 H (3.4-4.5) mmol/L BUN 25 H (8-23) mg/dL Creatinine 1.3 H (0.7-1.2) mg/dL Calcium 8.3 L (8.8-10.2) mg/dL Iron (59-158) ug/dL Troponin T (0-0.010) ng/mL 10/11/17 10/11/17 10/15/17 Range/Units 06:10 06:10 08:12 RBC (4.40-5.70) M/uL Hgb 7.9 L (14.0-18.0) gm/dl Hct 26.9 L (42.0-52.0) % MCV (81-97) fl MCHC (32-36) g/dl RDW (11.5-14.5) % Lymphocytes % (16-45) % Monocytes % (0-9) % Potassium (3.4-4.5) mmol/L BUN (8-23) mg/dL Creatinine (0.7-1.2) mg/dL Calcium (8.8-10.2) mg/dL Iron 33 L (59-158) ug/dL Troponin T 0.026 H (0-0.010) ng/mL 10/15/17 10/16/17 Range/Units 14:46 11:15 RBC (4.40-5.70) M/uL Hgb (14.0-18.0) gm/dl Hct (42.0-52.0) % MCV (81-97) fl MCHC (32-36) g/dl RDW (11.5-14.5) % Lymphocytes % (16-45) % Monocytes % (0-9) % Potassium (3.4-4.5) mmol/L BUN (8-23) mg/dL Creatinine (0.7-1.2) mg/dL Calcium (8.8-10.2) mg/dL Iron (59-158) ug/dL Troponin T 0.022 H 0.024 H (0-0.010) ng/mL Discharge Medications - Discharge Medications Home Medications: Ambulatory Orders Amiodarone HCl 200 mg PO DAILY 04/13/14 [Last Taken 10/04/17] Fluticasone/Salmeterol [Advair 250-50 Diskus] 1 puff INH BID 04/13/14 [Last Taken 10/04/17] Lisinopril 2.5 mg PO QHS 04/13/14 [Last Taken 10/04/17] Metoprolol Succinate [Toprol Xl] 25 mg PO DAILY 04/13/14 [Last Taken 10/04/17] Nitroglycerin 1 tab PO Q5MIN PRN 04/13/14 [Last Taken 10/04/17] Rosuvastatin Calcium [Crestor] 10 mg PO QHS 04/13/14 [Last Taken 10/04/17] Tiotropium [place] [Spiriva] 1 cap INH DAILY 04/13/14 [Last Taken 10/04/17] Cholecalciferol (Vitamin D3) [Vitamin D3] 4,000 unit PO DAILY 10/15/15 [Last Taken 10/04/17] Multivitamin [Multi-Vitamin Daily] 1 each PO DAILY 10/15/15 [Last Taken 10/04/17 ] Aspirin [Aspir-Low] 81 mg PO DAILY 05/15/17 [Last Taken 10/04/17] Discharge Plan - Discharge Instructions Instructions: ORIF of Hip Fracture (DC) Additional Instructions: 2 Activity: Per physical therapy 2 Diet: As tolerated 2 Follow Up: [] 2 Dressing/Wound Care: Incision is open to air, you may put band-aids over the incisions if needed for comfort. 2 Additional: Quality Measures - Quality Measures Quality Measures: Atrial Fibrillation & Atrial Flutter: Chronic Anticoagulation Therapy, Advance Directives, Documentation of Current Medications in Medical Record, Elder Maltreatment Screen and Follow-Up Plan, Screening for High Blood Pressure and F/U Documented - Current Medications Quality Measure: Measure #130: Documentation of Current Medications - Blood Pressure Screening Quality Measure: Screening for High Blood Pressure and Follow-Up Documented Blood Pressure Classification: Normal BP Reading Systolic Measurement: 114 Diastolic Measurement: 62 Screening for High Blood Pressure: < Normal BP, F/U Not Required > [[id number]] - Atrial Fibrillation and Atrial Flutter Quality Measure: Atrial Fibrillation & Atrial Flutter: Chronic Anticoagulation Therapy CHADS2 Risk Stratification: Age 75 or Greater, Hypertension Risk Stratification Summary: One or more high risk factors OR more than one moderate risk factor exists. [G8972] - Advance Directives Quality Measure: Measure #47: Care Plan Advance Directives Established: Yes Advance Directives Information Provided To Patient: No Advance Directives on File: Yes Living Will: Yes Power of Food Services Coordinator: Yes Power of Food Services Coordinator Name: Kimani Tavares - Elder Abuse Suspicion Index Screening: Elder Abuse Suspicion Index Screening Rely on people for bathing, dressing, shopping, banking, etc: No Prevented from getting food, clothes, medication, etc: No Made to feel shamed or threatened by someone: No Forced to sign papers or use money against will: No Feel afraid, touched in ways not wanted or hurt physically: No Poor eye contact, withdrawn, malnourished, cuts or bruises: No Screening Result: Negative result EASI Reference Information: Fernando WALKER, Amara C, An D, Chika Nevarez.Development and validation of a tool to assist physicians identification of elder abuse: The Elder Abuse Suspicion Index (EASI ). Journal of Elder Abuse and Neglect, 2008; 20 (3): 276-300. - Elder Maltreatment Screen Quality Measures: Elder Maltreatment Screen and Follow-Up Plan Elder Maltreatment Screen: <Negative, No Follow-Up Plan Required> [G8734]
--- NOTE | 2017-10-18 09:58 | Rehab Discharge Summary ---
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 ORIF L hip 10/16/15 PMH - Respiratory Hx Respiratory Disorders Yes Hx Bronchitis Yes Hx Chronic Obstructive Yes Pulmonary Disease (COPD) Hx Pneumonia Yes Comment: Home O2-3L PMH - Cardiovascular Hx Cardiovascular Disorders Yes Hx Abnormal EKG Yes Hx Cardiac Catheterization Yes Hx Chest Pain Yes Hx Edema Yes Hx Hypertension Yes Hx Irregular Heartbeat Yes Comment: AAA PMH - Neuro Hx Neurological Disorders No Hx Seizures No PMH - GI Hx Gastrointestinal Disorders Yes Comment: cholecystitis & cholelithiasis PMH - Hx Genitourinary Disorders Yes Hx Bladder Problem Yes Hx Prostate Problems Yes: removed Hx Renal Disease Yes PMH - Endocrine Hx Endocrine Disorders No PMH - Musculoskeletal Hx Musculoskeletal Disorders Yes Hx Arthritis Yes Hx Musculoskeletal Disease Yes PMH - Psych Hx Psychiatric Problems No PMH - Hematology/Oncology Hx Hematology/Oncology Yes Disorders Hx Cancer Yes: prostate Hx Blood Transfusion Reaction No Social History: Detail (Pt. reports that a couple weeks ago he went to turn on his front light to look outside for his cat and as he turned the light off and turned around to walk away he caught his foot on a short table resulting in a fall and he landed on his R hip. The pt. reports he lives alone in a 1-story home, but that he has family that lives on either side of him to help as necessary and regularly check up on him. The pt. has 1 step to enter the home from the garage with railing on both sides. There is a ramp that leads to the back door with railings on both sides. The pt. reports his bedroom, bathroom and laundry room are all on the 1st floor. He has a raised toilet seat with grab bars, a walk in shower with grab barsand a built in bench. The pt. reports he generally stands to shower and has to step over a short raised surface to step in. Pt. has a 4-wheeled walker, front-wheeled walker, and three canes to assist with ambulation. The pt. reports he doesn't have any precautions from his surgery, but is weight bearing as tolerated. The pt. reports he is able to prep his own food and can clean around his house. The patient uses oxygen at home at 2.5L. The pt. reports his current pain at a 4-5/10 and reports he does have some instances of numbess and tingling sensations that travel down his R leg and into his foot.) Precautions: [place], Fall, Other (weight bearing as tolerated) Objective Data - Pain Pain Present: Yes (right hip pain) - Mental Status Patient Orientation: Oriented x3 - Visual Perception Appears within normal limits for therapeutic activities (Pt wears glasses) - ROM Not within normal limits (Right UE limited but functional due to premorbid injury, overall unchanged from initial evaluation. Left UE AROM WNL throughout. ) - Strength/Tone Not within normal limits (Right UE 3+/5 within AROM limitations, left UE 4 to 4+ /5 throughout.) - Coordination Appears within normal limits for therapeutic activities - Bed Mobility Independent - Transfers Independent (Ind with sit to stand from a variety of surfaces.) - Balance Balance Sitting: Good Balance Standing: Good - Sensation Intact - Gait Detail (Pt ambulating household distances with 4 wheeled walker Indly using 2 liters of oxygen.) - ADL's/IADL's Detail (Pt is safe and Ind with showering and total body dressing with use of household appliance installer.) Therapy Assessment - Therapy Assessment Detail (Pt is safe and Ind with ADLs and simulated IADLs as well as functional mobility. Overall endurance has improved with functional activities.) Problem List - Problem List Physical Therapy Problem List: Detail (1. LE weakness 2. LE ROM deficits 3. Gait impairments 4. Balance deficits 5. LE pain) Occupational Therapy Problem List: Detail (1. Pt unable to amb. household distances 2. Decreased ind. w/ LB drsg. 3. Decreased endurance to complete ADLs. 4. Decreased ind. w/ showering) Goals - Goals Physical Therapy Goals: 1. Pt. will independently ambulate 100ft with an AD with no reports of increased pain and with more than 50% weight bearing. 2. PT will administer the Tinetti Balance Assessment Tool to assess the pt.'s overall balance. (MET). 3. Pt. will verbalize and demonstrate understanding of HEP. 4. Pt. will independently ascend and descend 3 steps with no reports of increased pain in the R LE. Occupational Therapy Goals: Goals Met: 1. Pt to be able to amb household distances using AD if needed. 2. Ind w/ LB drsg using ADL equipment if needed. 3. Ind w/ showering using ADL equipment if needed. 4. Pt to demonstrate improved endurance to complete ADLs w/ no rest breaks needed Prognosis - Prognosis Good Plan - Plan Physical Therapy Plan: Pt. will be seen 1-2x/day Monday-Monday during the course of inpatient physical therapy. Treatment will consist of therapeutic exercise of LE stengthening exercises, gait training, balance training, and pt. education on completing safe transfers around the home setting. Occupational Therapy Plan: Pt discharged home today.
--- NOTE | 2017-10-18 10:47 | Rehab Discharge Summary ---
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 right shoulder prostatectomy ORIF L hip 10/16/15 PMH - Respiratory Hx Respiratory Disorders Yes Hx Bronchitis Yes Hx Chronic Obstructive Yes Pulmonary Disease (COPD) Hx Pneumonia Yes Comment: Home O2-3L PMH - Cardiovascular Hx Cardiovascular Disorders Yes Hx Abnormal EKG Yes Hx Cardiac Catheterization Yes Hx Chest Pain Yes Hx Edema Yes Hx Hypertension Yes Hx Irregular Heartbeat Yes Comment: AAA PMH - Neuro Hx Neurological Disorders No Hx Seizures No PMH - GI Hx Gastrointestinal Disorders Yes Comment: cholecystitis & cholelithiasis PMH - Hx Genitourinary Disorders Yes Hx Bladder Problem Yes Hx Prostate Problems Yes: removed Hx Renal Disease Yes PMH - Endocrine Hx Endocrine Disorders No PMH - Musculoskeletal Hx Musculoskeletal Disorders Yes Hx Arthritis Yes Hx Musculoskeletal Disease Yes PMH - Psych Hx Psychiatric Problems No PMH - Hematology/Oncology Hx Hematology/Oncology Yes Disorders Hx Cancer Yes: prostate Hx Blood Transfusion Reaction No Social History: Detail (Pt. reports that a couple weeks ago he went to turn on his front light to look outside for his cat and as he turned the light off and turned around to walk away he caught his foot on a short table resulting in a fall and he landed on his R hip. The pt. reports he lives alone in a 1-story home, but that he has family that lives on either side of him to help as necessary and regularly check up on him. The pt. has 1 step to enter the home from the garage with railing on both sides. There is a ramp that leads to the back door with railings on both sides. The pt. reports his bedroom, bathroom and laundry room are all on the 1st floor. He has a raised toilet seat with grab bars, a walk in shower with grab barsand a built in bench. The pt. reports he generally stands to shower and has to step over a short raised surface to step in. Pt. has a 4-wheeled walker, front-wheeled walker, and three canes to assist with ambulation. The pt. reports he doesn't have any precautions from his surgery, but is weight bearing as tolerated. The pt. reports he is able to prep his own food and can clean around his house. The patient uses oxygen at home at 2.5L. The pt. reports his current pain at a 4-5/10 and reports he does have some instances of numbess and tingling sensations that travel down his R leg and into his foot.) Precautions: [place], Fall, Other (weight bearing as tolerated) Subjective Information - Subjective Information Per Patient (The patient has minimal complaints of R lateral hip and quadricep pain.) Objective Data - Mental Status Patient Orientation: Oriented x3 - Visual Perception Appears within normal limits for therapeutic activities - ROM Within normal limits - Strength/Tone Not within normal limits (The patient's LE strength is as follows: L LE hip musculature is generally 4 to 4+/5, knee and ankle musculature is 4+ to 5/5. R LE : hip flexors, abductors and internal rotators 4-/5, external rotators 3+/5, knee flexors 4/5, knee extensors 4-/5, ankle musculature 4+ to 5/5.) - Bed Mobility Independent (The patient is Independent with supine to and from sit transfer and scooting up in bed.) - Transfers Independent (The patient is independent with sit to and from stand transfer and toilet transfer. The patient completed car transfer with supervision for safety. ) - Balance Balance Sitting: Good Balance Standing: Fair (The patient's balance improved to 23/28 using the Tinetti Assessment Tool which is in the moderate risk for fall category. Initially the patient scored 19/28.) - Gait Detail (The patient was independent with ambulation with both 4 wheeled walker and 2 wheeled walker a distance of 250 feet with 3 L of O2. The patient ambulated on stairs with supervision for safety and use of railings.) Therapy Assessment - Therapy Assessment Detail (The patient is independent with ambulation, transfers and bed mobility and LE strengthening exercises. The patient declined home PT.) Patient Education - Patient Education Teaching Topic: Exercise/Activity (LE strengthening exercises.) Response: Return Demonstration Teaching Method: Demonstration, Handout Teaching Recipient: Patient, Family Barriers To Learning: Age Related Problem List - Problem List Physical Therapy Problem List: Detail (1. LE weakness 2. LE ROM deficits 3. Gait impairments 4. Balance deficits 5. LE pain) Occupational Therapy Problem List: Detail (1. Pt unable to amb. household distances 2. Decreased ind. w/ LB drsg. 3. Decreased endurance to complete ADLs. 4. Decreased ind. w/ showering) Goals - Goals Physical Therapy Goals: GOALS MET: 1. Pt. will independently ambulate 100ft with an AD with no reports of increased pain and with more than 50% weight bearing. 2. PT will administer the Tinetti Balance Assessment Tool to assess the pt.'s overall balance. (MET). 3. Pt. will verbalize and demonstrate understanding of HEP. 4. Pt. will independently ascend and descend 3 steps with no reports of increased pain in the R LE. Occupational Therapy Goals: Goals Met: 1. Pt to be able to amb household distances using AD if needed. 2. Ind w/ LB drsg using ADL equipment if needed. 3. Ind w/ showering using ADL equipment if needed. 4. Pt to demonstrate improved endurance to complete ADLs w/ no rest breaks needed Plan - Plan Physical Therapy Plan: The patient discharged to home and is to continue with HEP. Occupational Therapy Plan: Pt discharged home today.
== END 2017-10-18 10:10 | disposition home or self-care (01) | DRG 948 ==
LOC: MEDSURG 10-04 09:22
PROVIDERS: ADMIT Internal Medicine; ATTEND Internal Medicine
DX: R53.1 Weakness (principal); I48.91 Unspecified atrial fibrillation; Z79.01 Long term (current) use of anticoagulants; I10 Essential (primary) hypertension; D64.9 Anemia, unspecified; Z87.81 Personal history of (healed) traumatic fracture; I25.10 Atherosclerotic heart disease of native coronary artery without angina pectoris; J44.9 Chronic obstructive pulmonary disease, unspecified; Z95.2 Presence of prosthetic heart valve
CPT/HCPCS: 80048; 82553; 82607; 82746; 83550; 84484; 85014; 85018; 85025; 86850; 86900; 86901; 90686; 93005; 93010; 94640; 94760; 94761; 97110; 97165; 97530; 97535; 99306; 99309; 99316; J1650

== ENCOUNTER 2017-11-13 01:22 | Emergency (ER) | payer MEDICARE, OTHER ==
[2017-11-13] MEDS ORDERED: IPRATROPIUM/ALBUTEROL (0.5MG/3MG) NEB INH ONE (01:28)
--- NOTE | 2017-11-13 01:30 | Emergency Department Record ---
History of Present Illness - General Stated Complaint: SOB Time Seen by Provider: 11/13/17 01:27 Source: Patient, Family - History of Present Illness Initial Comments: The patient and family state that he has not been feeling well since 11-11-17 with mild weakness, decreased p.o. intake, and increased LUCIO. He did a home inhaler prior to arrival which has not helped him. He has been on home oxygen 2 -3 liters for the past 2 years for COPD. He becomes breathless with minimal exertion. He sees pulmonary Dr. Richardson at [facility]. He denies f,c, n,v ap, back pain, leg pain or calf tenderness. Yesterday he states he had about 20 minutes of nausea, but none today and no CP or productive cough. He has a AAA repaired by Dr. Suarez a year ago. He had heart valve surgery in 2012, and right hip replacement by Dr. Navas 09-27-17. He also had cellulitis of his right lower leg which he says has improved and is not now a concern. He denies history of PE, DVT. MD Complaint: Shortness of breath - Related Data Allergies Allergy/AdvReac Type Severity Reaction Status Date / Time No Known Drug Allergies Allergy Verified 07/20/16 01:47 Review of Systems Reviewed: No additional complaints except as noted below Constitutional: Reports: As per HPI. Denies: Chills, Fever, Malaise, Night sweats, Weakness, Weight change Eyes: Reports: As per HPI. Denies: Eye discharge, Eye pain, Photophobia, Vision change ENT: Reports: As per HPI. Denies: Congestion, Dental pain, Ear pain, Epistaxis , Hearing loss, Throat pain Respiratory: Reports: As per HPI. Denies: Cough, Dyspnea, Hemoptysis, Stridor, Wheezes Cardiovascular: Reports: As per HPI. Denies: Arrhythmia, Chest pain, Dyspnea on exertion, Edema, Murmurs, Orthopnea, Palpitations, Paroxysmal nocturnal dyspnea, Rheumatic Fever, Syncope Endocrine: Reports: As per HPI. Denies: Fatigue, Heat or cold intolerance, Polydipsia, Polyuria Gastrointestinal: Reports: As per HPI. Denies: Abdominal pain, Constipation, Diarrhea, Hematemesis, Hematochezia, Melena, Nausea, Vomiting Genitourinary: Reports: As per HPI. Denies: Dysuria, Frequency, Hematuria, Incontinence, Retention, Testicular pain, Testicular mass, Urgency Musculoskeletal: Reports: As per HPI. Denies: Arthralgia, Back pain, Gout, Joint swelling, Myalgia, Neck pain Skin: Reports: As per HPI. Denies: Bruising, Change in color, Change in hair/ nails, Lesions, Pruritus, Rash Neurological: Reports: As per HPI. Denies: Abnormal gait, Confusion, Headache, Numbness, Paresthesias, Seizure, Tingling, Tremors, Vertigo, Weakness Psychiatric: Reports: As per HPI. Denies: Anxiety, Auditory hallucinations, Depression, Homicidal thoughts, Suicidal thoughts, Visual hallucinations Hematological/Lymphatic: Reports: As per HPI. Denies: Anemia, Blood Clots, Easy bleeding, Easy bruising, Swollen glands Past Medical History - SOCIAL HISTORY Smoking Status: Former smoker - RESPIRATORY Hx Respiratory Disorders: Yes Comment:: Home O2-3L - CARDIOVASCULAR Hx Cardio Disorders: Yes Hx Abnormal EKG: Yes Hx Cardiac Cath: Yes Hx Chest Pain: Yes Hx Edema: Yes Hx Hypertension: Yes Hx Irregular Heartbeat: Yes Comment:: AAA - NEURO Hx Seizures: No - GI Hx GI Disorders: Yes Comment:: cholecystitis & cholelithiasis - Hx Genitourinary Disorders: Yes Hx Bladder Problem: Yes Hx Prostate Problems: Yes (removed) Hx Renal Disease: Yes - ENDOCRINE Hx Endocrine Disorders: No - MUSCULOSKELETAL Hx Musculoskeletal Disorders: Yes Hx Arthritis: Yes Hx Musculoskeletal Disease: Yes - PSYCH Hx Psych Problems: No - HEMATOLOGY/ONCOLOGY Hx Hematology/Oncology Disorders: Yes Hx Cancer: Yes (prostate) Hx Blood Transfusions: Yes Hx Blood Transfusion Reaction: No Family Medical History Hx Diabetes: Father Hx Heart Disease: Father Physical Exam - General General Appearance: Alert, Oriented x3, Cooperative, Mild distress (able to speak full sentences easily), Other (barrel chested with prolongued expiratory phase and expiratory wheezes, no retractions) - Head Head exam: Normal inspection - Eye Eye exam: Normal appearance, PERRL Pupils: Normal accommodation - ENT ENT exam: Normal exam, Mucous membranes moist, Normal external ear exam, Normal orophraynx, TM's normal bilaterally Ear exam: Normal external inspection. negative: External canal tenderness Nasal Exam: Normal inspection. negative: Discharge, Sinus tenderness Mouth exam: Normal external inspection, Tongue normal Teeth exam: Normal inspection. negative: Dental caries Throat exam: Normal inspection. negative: Tonsillar erythema, Tonsillar exudate - Neck Neck exam: Normal inspection, Full ROM, Other (no JVD). negative: Lymphadenopathy, Meningismus, Tenderness - Respiratory Respiratory exam: Decreased breath sounds, Prolonged expiratory, Respiratory distress (mild), Wheezes (expiratory wheezes throughout with crackles left lowe lung base laterally) - Cardiovascular Cardiovascular Exam: Regular rate, Normal rhythm, Normal heart sounds - GI/Abdominal GI/Abdominal exam: Soft, Normal bowel sounds. negative: Tenderness - Rectal Rectal exam: Deferred - exam: Deferred - Extremities Extremities exam: Normal inspection, Full ROM, Normal capillary refill, Pedal edema (+1 bilateral ankle edema with trace of chronic vascular changes, no active cellulitis or calf tenderness). negative: Calf tenderness, Tenderness - Back Back exam: Reports: Normal inspection, Full ROM. Denies: CVA tenderness (R), CVA tenderness (L), Muscle spasm, Rash noted, Tenderness - Neurological Neurological exam: Alert, CN II-XII intact, Normal gait, Oriented X3, Reflexes normal. negative: Motor sensory deficit - Psychiatric Psychiatric exam: Normal affect, Normal mood - Skin Skin exam: Dry, Intact, Normal color, Warm Course - Reevaluation(s) Reevaluation #1: After his breathing treatment his tightness diminished and he developed audible wheezes on expiration all lung branch. He states his breathing has improved. 11/13/17 02:17 Reevaluation #2: Patient states that he feels like he is back to his baseline respiratory status and is feeling much better but ready for bed. Family at bedside agrees he looks much better. 11/13/17 03:28 Reevaluation #3: After discussion with patient and family regarding the results of studies, the patient and family request transfer to [facility] for CTA and admission as his PCP Dr. Марина Villeda and his ward service supervisor and it business systems analyst are there. DW Dr. Bush Emergency Attending who accepts patient in transfer. 11/13/17 03:54 Medical Decision Making - Management Options [facility] Management: Additional Work-up Planned (e.g. ADM/Transfer/OP Study) ( Transfer to [facility] per patient/family request) - Data Complexity MDM Data: Labs Ordered and/or Reviewed, X-Ray Ordered and/or Reviewed (CXR two view: Hyperinflation, chronic changes, fluid in fissure left lung field, all unchanged from .), EKG Ordered and/or Reviewed - Lab Data Result diagrams: 11/13/17 01:50 11/13/17 01:50 - EKG Data -: EKG Interpreted by Me EKG: No Acute Changes, Unchanged From Previous (pror of 10-15-17) Disposition Disposition: Transfer Clinical Impression: COPD exacerbation, D-dimer, elevated, Elevated troponin, Renal insufficiency AAA (abdominal aortic aneurysm) Qualifiers: Presence of rupture: without rupture Qualified Code(s): I71.4 - Abdominal aortic aneurysm, without rupture Disposition: Acute Care Hospital Transfer Transfer To: [facility] emergency Reason For Transfer: patient and famly request Accepting Physician: Dr. Stallings Time Discussed w/Accepting Physician: 03:59 Condition: (2) Stable Quality - Quality Measures Quality Measures: N/A - Blood Pressure Screening Does Patient Have Any of the Following: No Blood Pressure Classification: Pre-Hypertensive BP Reading Systolic Measurement: 163 Diastolic Measurement: 84 Screening for High Blood Pressure: Patient Exclusion, Hx of HTN [G9744]
[2017-11-13] MEDS ORDERED: METHYLPREDNISOLONE PF 125MG/VIAL IVP ONE (01:58)
[2017-11-13 01:59] LABS: BASO % 0.4 % (0-6); EOS % 2.1 % (0-6); HEMATOCRIT 31.7 % (42.0-52.0); HEMOGLOBIN 9.7 gm/dl (14.0-18.0); LYMPH % 16.1 % (16-45); MEAN CELL VOLUME 101.9 fl (81-97); MEAN CORPUSCULAR HGB CONC 30.6 g/dl (32-36); MONO % 8.4 % (0-9); PLATELET COUNT 165 K/uL (130-400); RED BLOOD COUNT 3.11 M/uL (4.40-5.70); RED CELL DISTRIBUTION WIDTH 15.4 % (11.5-14.5); WHITE BLOOD COUNT W/O DIFF 5.6 K/uL (4.2-12.2)
[2017-11-13 02:01] LABS: MEAN CORPUSCULAR HEMOGLOBIN 31.1 pg (27-33)
[2017-11-13 02:09] LABS: CREATININE 1.4 mg/dL (0.7-1.2)
[2017-11-13 03:11] LABS: URINE APPEARANCE CLEAR; URINE BILIRUBIN NEGATIVE (NEGATIVE); URINE BLOOD NEGATIVE (NEGATIVE); URINE COLOR YELLOW; URINE GLUCOSE (UA) NEGATIVE (NEGATIVE); URINE KETONE NEGATIVE (NEGATIVE); URINE LEUKOCYTE ESTERASE NEGATIVE (NEGATIVE); URINE NITRITE NEGATIVE (NEGATIVE); URINE PROTEIN NEGATIVE (NEGATIVE)
--- NOTE | 2017-11-14 07:25 | RADIOLOGY REPORT ---
EXAM: CHEST, TWO VIEWS HISTORY: SHORTNESS OF BREATH. COPD EXACERBATION. TECHNIQUE: PA and lateral upright views of the chest were obtained. Comparison: 09/24/17, 05/15/17, and 08/02/16. FINDINGS: The patient is status post cardiac valve replacement. The heart is normal in size. There is calcification and tortuosity of the aorta. The mediastinum and pulmonary vasculature are normal. The lungs are hyperinflated consistent with COPD. Chronic interstitial changes are present bilaterally and are not significantly different. There are no visible acute infiltrates or effusions. There is no pneumothorax. The bones appear intact. IMPRESSION: 1. STABLE COPD AND CHRONIC INTERSTITIAL CHANGES. 2. NO ACUTE CHEST PATHOLOGY. JOB NUMBER: [id number] [facility]
== END 2017-11-13 04:25 | disposition short-term general hospital (02) ==
LOC: ER 01:22
DX: J44.1 Chronic obstructive pulmonary disease with (acute) exacerbation (principal); I71.4 Abdominal aortic aneurysm, without rupture; N28.9 Disorder of kidney and ureter, unspecified; R79.89 Other specified abnormal findings of blood chemistry; I10 Essential (primary) hypertension; Z87.891 Personal history of nicotine dependence; Z99.81 Dependence on supplemental oxygen
CPT/HCPCS: 71020; 80048; 81003; 83880; 84484; 85025; 85379; 93005; 93010; 94640; 96374; 99285; J2930